=== PATIENT | male | born 1970 | race Caucasian/White ===

== ENCOUNTER → 2019-06-16 11:02 | Outpatient (BNVA) | payer OTHER, SELFPAY | PROVIDERS: Family Provider Family Medicine; PCP Family Medicine; Visit Provider Family Medicine | DX: E11.9 Type 2 diabetes mellitus without complications (principal); E78.2 Mixed hyperlipidemia; I10 Essential (primary) hypertension; G47.00 Insomnia, unspecified; M19.90 Unspecified osteoarthritis, unspecified site | CPT/HCPCS: 80053; 80061; 83036; 85025 ==

== ENCOUNTER → 2019-10-06 09:52 | Outpatient (BNVA) | payer OTHER, SELFPAY | PROVIDERS: Family Provider Family Medicine; PCP Family Medicine; Visit Provider Family Medicine | DX: E78.2 Mixed hyperlipidemia (principal); E11.9 Type 2 diabetes mellitus without complications; I10 Essential (primary) hypertension | CPT/HCPCS: 80053; 80061; 83036; 85025 ==

== ENCOUNTER → 2020-01-16 14:07 | Outpatient (BNVA) | payer OTHER, SELFPAY | PROVIDERS: Family Provider Family Medicine; PCP Family Medicine; Visit Provider Family Medicine | DX: E78.2 Mixed hyperlipidemia (principal); E11.9 Type 2 diabetes mellitus without complications | CPT/HCPCS: 80053; 80061; 83036; 85025 ==

== ENCOUNTER → 2020-04-29 11:27 | Outpatient (BNVA) | payer OTHER, SELFPAY | PROVIDERS: Family Provider Family Medicine; PCP Family Medicine; Visit Provider Family Medicine | DX: E78.2 Mixed hyperlipidemia (principal); E11.9 Type 2 diabetes mellitus without complications; I10 Essential (primary) hypertension | CPT/HCPCS: 80053; 80061; 83036; 85025 ==

== ENCOUNTER → 2020-09-06 09:49 | Outpatient (BNVA) | payer OTHER, SELFPAY | PROVIDERS: Family Provider Family Medicine; PCP Family Medicine; Visit Provider Family Medicine | DX: E11.9 Type 2 diabetes mellitus without complications (principal); I10 Essential (primary) hypertension; E78.2 Mixed hyperlipidemia; M62.830 Muscle spasm of back; M54.9 Dorsalgia, unspecified; G89.29 Other chronic pain | CPT/HCPCS: 80053; 80061; 83036; 84443; 85025 ==

== ENCOUNTER → 2021-02-27 10:04 | Outpatient (BNVA) | payer OTHER, SELFPAY | PROVIDERS: Family Provider Family Medicine; PCP Family Medicine; Visit Provider Family Medicine | DX: I10 Essential (primary) hypertension (principal); M54.9 Dorsalgia, unspecified; G89.29 Other chronic pain; E78.2 Mixed hyperlipidemia; M62.830 Muscle spasm of back; K13.70 Unspecified lesions of oral mucosa; E11.9 Type 2 diabetes mellitus without complications; Z23 Encounter for immunization | CPT/HCPCS: 80053; 80061; 83036; 84443; 85025 ==

== ENCOUNTER → 2021-03-13 10:22 | Outpatient (BNVA) | payer OTHER, SELFPAY | PROVIDERS: Family Provider Family Medicine; PCP Family Medicine; Visit Provider Otolaryngology | DX: Z01.812 Encounter for preprocedural laboratory examination (principal); K13.70 Unspecified lesions of oral mucosa; Z20.822 Contact with and (suspected) exposure to COVID-19 | CPT/HCPCS: 87635 ==

== ENCOUNTER 2021-03-19 07:44 | Day surgery (SDC) | payer OTHER, SELFPAY ==
[2021-03-18 13:08] VITALS: BMI 35.9
[2021-03-19] VITALS (7 sets, daily range): BP systolic 106–156; BP diastolic 59–87; PULSE 55–99; RESP 15–20; TEMP 36.1–36.7; O2SAT 91–97
[2021-03-19] MEDS: sodium chloride 0.9% 1,000 ML 30 ML IV (08:22)
[2021-03-19 08:25] LABS: Glucose Point of Care 148 mg/dL (70-110)
--- NOTE | 2021-03-19 08:25 | ANES.PREANE2 ---
Pre-Anesthetic Assessment Pre-Anesthetic Assessment: Height/Weight: Height 1.78 m Weight 113.398 kg Temp Pulse Resp BP Pulse Ox 98 F 55 L 16 156/87 95 03/19/21 08:09 03/19/21 08:09 03/19/21 08:09 03/19/21 08:09 03/19/21 08:09 Preop Diagnosis: Right buccal membrane ulceration and neoplasm Proposed Procedure: Operation Date: 03/19/21 09:20 Proposed Procedures p :BIOPSIES OF RIGHT ORAL MUCOSAL LESION WITH FROZEN SECTION 50231 d49.0(Not Applicable) - Ed Guallpa MD Was Beta Yasmani taken within 24 hours: N/A Was Clonidine taken within 24 hours: N/A Last intake: Intake Last Liquid Date 03/18/21 Last Liquid Time 20:00 Last Solid Date 03/18/21 Last Solid Time 20:00 Social: Social History: Tobacco and No alcohol Exam: Pre-Anes Outpt Exam: alert, oriented x 3, clear to auscultation bilaterally and regular rate & rhythm Airway: Submandibular: WNL Cervical ROM: WNL MP: 2 Dentition: Full Pulmonary: Pulmonary: COPD CV/HEM: CV/HEM: HTN Metabolic: Metabolic: DM, Hyperlipidemia and Morbid obesity Neuropsych: Neuropsych: Neuropathy Anesthetic Plan: ASA status: 3 Anesthesia: General Risk of > 500 ml blood loss (7ml/kg in children): No Meds/Allergies Current Medications: Current Medications Generic Name Dose Route Start Last Admin Trade Name Freq PRN Reason Stop Dose Admin Sodium Chloride 1,000 mls @ 30 ml s/hr 03/19/21 08:00 03/19/21 08:22 Sodium Chloride 0.9% IV 03/20/21 07:59 30 mls/hr .Q24H JOSH Administration PFSH Anesthesia PFSH: Medical History Aortic valve sclerosis Essential (primary) hypertension Hyperlipemia, mixed Type 2 diabetes mellitus without complications Family History Grandfather No problems noted. Father Cancer lung Lung disease Hypertension Mother Diabetes Social History Smoking and tobacco status: current every day smoker Alcohol intake: never Adopted: No Lives independently: Yes Household members: none Housing: House Marital status: Number of children: 2 Highest education level completed: 9th Grade service: No Current occupational status: employed Pets and animals: Yes History of recent travel: No Current gender identity: Male Data Anesthesia Cardiac Studies: No Data to Display
--- NOTE | 2021-03-19 09:54 | W.PM.OPSUD ---
Surgery/Procedure H&P Update DATE OF PROCEDURE: March 19, 2021 DATE H&P PERFORMED: 03/03/21 H&P UPDATE INFORMATION: I have reviewed H&P completed within last 30 days, I have examined patient prior to procedure and No changes to prior documentation PREOP DIAGNOSIS: Right buccal membrane ulceration and neoplasm PLANNED PROCEDURE: Operation Date: 03/19/21 09:20 Proposed Procedures p :BIOPSIES OF RIGHT ORAL MUCOSAL LESION WITH FROZEN SECTION 24105 d49.0(Not Applicable) - Ed Guallpa MD
[2021-03-19] MEDS: ceFAZolin 3,000 MG in sodium chloride 0.9% (100 ml) 100 ML 200 MG IV (09:59)
--- NOTE | 2021-03-19 10:35 | SUR.OPER ---
1012 6 carpiols of 1.7ml 2% lidocaine with epi given introrally by dr. zhang
--- NOTE | 2021-03-19 10:51 | P.OP_ITS ---
Operative Report Date of procedure: March 19, 2021 Pre-op Diagnosis: Right buccal membrane ulceration and neoplasm Post-op diagnosis: same Post-op Findings: Superficial ulceration with thickened tissue and leukoplakia with erythroplakia. Frozen section did not show any malignancy. Procedure Done: Incisional biopsy of right buccal membrane and retro molar trigone soft tissue. Specimens removed/disposition: 2 adjacent specimens from the right buccal membrane and retromolar trigone were forwarded to pathology for frozen section and subsequent testing. Surgeon: Ed Guallpa Anesthesia: General and Local Estimated blood loss (mL): 25 Complications: No complications encountered. Findings: There was an ulceration with somewhat irregular erythematous tissue adjacent to leukoplakic changes in the right posterior buccal membrane extending to a mass-effect in the right retromolar trigone area. Condition: stable Disposition: PACU Brief History: 50-year-old male patient with a heavy smoking history for 25 years of cigarettes and then 10 years of cigars. He has leukoplakia and erythroplakia changes in the right buccal membrane extending to an ulcerative area and what appears to be an adjacent soft tissue mass with irregular erythema on its surface at the retromolar trigone. He is being brought to the operating room at this time to undergo biopsy of these areas with frozen section. Procedure: Description of procedure: The patient was placed on the operating table in the supine position. Adequate general endotracheal tube anesthesia was obtained. He was given Ancef IV for prophylaxis. A timeout was accomplished identifying the patient date of plan procedure allergies fire risk and medications given. With all in agreement the procedure continued. The table was rotated 90 degrees. He was positioned for an oral procedure. A mouthguard and retractor was placed between the teeth upper and lower and spread open to reveal the buccal membrane. A towel clamp was placed to the median raphae of the tongue to be able to retract it to the left. 8.5 mL of 2% Xylocaine with 1- 100,000 epinephrine was then injected in the surrounding area and field block. After several minutes a 15 blade was used to incise through the surrounding buccal membrane and lesion site down to the subcutaneous tissue. This was taken to the retromolar trigone and then a second specimen was resected from the retromolar trigone. These were forwarded to the pathologist for frozen section. While that was pending bipolar cautery was used to control bleeding in this soft tissue area. Sponge was placed to hold pressure on the area. Pathology returned as no neoplasm identified with most likely leukoplakic changes with abnormal lymphocytes surrounding the area. Final diagnosis is deferred to permanent section and lymphoascitic special studies. This defect was then closed using 2-0 Vicryl interrupted sutures closing the defect completely. There was an area of approximately 2 cm? that was closed. No bleeding was encountered at this point. The mouth was irrigated with saline and suctioned clean. Again no active bleeding was seen. The throat was suctioned again. The sponges were removed from the mouth. The mouthguard and retractor were removed. Patient was then returned to the anesthesiologist for wake-up and extubation. He tolerated the procedure well had an estimated blood loss of 25 mL and arrived in recovery in stable condition.
[2021-03-19] MEDS: TRAMadol 50 mg Tablet PO (11:37)
[2021-03-19] MEDS: cetylpyridinium Lozenge 1 EACH MUCOUS MEM (11:58)
--- NOTE | 2021-03-19 15:47 | ANE.PACU2 ---
Inpatient post-anesthesia follow up: Airway intact: Yes Vital signs: Temperature 98.1 F Pulse Rate 67 Respiratory Rate 16 Blood Pressure 125/62 Pulse Oximetry 95 Oxygen Delivery Me thod Room Air Oxygen Flow Rate 6 Fraction of Inspir ed Oxygen Hydration adequate: Yes Nausea and vomiting: No Pain level: 2 Mental status: Baseline
[2021-03-26 06:47] LABS: Miscellaneous Test See Scanned Lab Rpt
== END 2021-03-19 12:25 | disposition home or self-care (01) ==
PROVIDERS: PCP Family Medicine; Visit Provider Otolaryngology
PROC: (CPT 40808; principal; 2021-03-19 09:20)
DX: C06.2 Malignant neoplasm of retromolar area (principal); K13.21 Leukoplakia of oral mucosa, including tongue; K13.29 Other disturbances of oral epithelium, including tongue; J44.9 Chronic obstructive pulmonary disease, unspecified; I10 Essential (primary) hypertension; E11.40 Type 2 diabetes mellitus with diabetic neuropathy, unspecified; E66.01 Morbid (severe) obesity due to excess calories; Z68.35 Body mass index [BMI] 35.0-35.9, adult; E78.2 Mixed hyperlipidemia; F17.290 Nicotine dependence, other tobacco product, uncomplicated
CPT/HCPCS: 40808; 36416; 82962; 88271; 88275; 88331; 96365; J0690; J1100; J2405; J2704; J3010; J3490; J7030

== ENCOUNTER 2021-04-07 14:50 | Outpatient (CLI) | payer OTHER, SELFPAY ==
--- NOTE | 2021-04-07 16:04 | N.ONRAD NP_ITS ---
Radiation Oncology Consultation Patient Name: Antonio Parra Date of : 1970 Date of Service: 04/07/2021 Attending Physician: Brian Kellogg M.D. Antonio Parra was seen in consultation this afternoon at the request of Ed Guallpa M.D for evaluation regarding adjuvant head and neck radiotherapy for the management of a recently diagnosed oral cavity carcinoma. The patient was evaluated in February at the Otolaryngology Department of the [facility] DEUS use for a right buccal lesion. Examination identified a 1.5 cm superficial ulceration with associated erythroplakia and leukoplakia. An excision was performed by Ed Guallpa M.D. on March 19, 2021. 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 The patient's postoperative convalescence was complicated by dehiscence of the buccal membrane sutures. He was evaluated for postoperative radiotherapy. I discussed with Mr. Parra the AJCC staging, specifically the patient's pathological stage I (T1Nx) of the oral cavity associated with his diagnosis. I also reviewed the National Comprehensive Cancer Network Guidelines for adjuvant radiotherapy in patients with newly resected tumors and adverse features (i.e. close margins, lymphovascular invasion/perineural, pN2/pN3, or advanced tumors; pT3-pT4). I will order a PET CT for staging. If imaging is negative, adjuvant radiotherapy would not be recommended on account of the absence of adverse tumor characteristics The medical treatment plan was discussed with Ed Guallpa M.D Signed by: Dr. Brian Kellogg 04/07/2021 4:03:08 PM
== END 2021-04-07 14:51 | disposition home or self-care (01) ==
LOC: ONCMED 14:54
PROVIDERS: PCP Family Medicine; Visit Provider Radiology Radiation Oncology
DX: C06.9 Malignant neoplasm of mouth, unspecified (principal); C77.0 Secondary and unspecified malignant neoplasm of lymph nodes of head, face and neck; Z79.899 Other long term (current) drug therapy
CPT/HCPCS: 99205

== ENCOUNTER 2021-05-19 08:08 | Outpatient (CLI) | payer OTHER, SELFPAY ==
--- NOTE | 2021-05-19 | CT_ITS ---
NOTE: Report was unsigned for reason: Ordering provider was edited. Original Signature date and time was: 05/19/2021 0907 WS: [id number] Exam: CT neck w con* [id number] Date/Time of Exam: 05/19/2021 8:30 AM Reason For Exam: MALIGNANT NEOPLASM CHEEK MUCOSA DLP: 1310.[address] scans at [facility] use at least one of these dose optimization techniques: automated exposure control; mA and/or kV adjustment per patient size (includes targeted exams where dose is matched to clinical indication); or iterative reconstruction. The head and neck are evaluated in the axial plane with sagittal and coronal reformatted images. Intravenous contrast was administered. There was no sign of neck mass or significant cervical lymphadenopathy. Several small scattered subcentimeter short axis lymph nodes are noted bilaterally which have benign appearance. The submandibular glands and parotid glands are symmetrical side to side. Normal thyroid tissue. Leftward nasal septal deviation. The airway is patent. No masses in the region of the tongue base. The bilateral common carotid arteries and the extracranial internal carotid arteries are patent without critical stenosis or occlusion. Bony structures are intact. Visualized upper lung zones are clear. Images of the skull base and posterior fossa were unremarkable. Mild bilateral sphenoid sinus changes. [facility] CT/CT neck w con* [id number] IMPRESSION: 1. No sign of neck mass or significant cervical lymphadenopathy. 2. Other minor findings as above.
[2021-05-19] MEDS: iohexol 300 mg/mL 100 mL Btl IV (11:41)
== END 2021-05-19 08:09 | disposition home or self-care (01) ==
PROVIDERS: PCP Family Medicine; Visit Provider Radiology Radiation Oncology
DX: C06.0 Malignant neoplasm of cheek mucosa (principal)
CPT/HCPCS: 70491; Q9967

== ENCOUNTER 2021-05-21 09:58 | Outpatient (CLI) | payer OTHER, SELFPAY ==
--- NOTE | 2021-05-21 | CT_ITS ---
WS: [id number] CT CHEST, ABDOMEN, AND PELVIS TECHNIQUE: Contrast-enhanced CT of the chest, abdomen, and pelvis with coronal and sagittal reformatt ed images. CLINICAL INFORMATION: MALIGNANT NEOPLASM CHEEK MUCOSA COMPARISON: CT abdomen pelvis 2005. CT neck May 19, 2021 DLP: 2565.[address] scans at [facility] use at least one of these dose optimization techniques: automated e xposure control; mA and/or kV adjustment per patient size (includes targeted exams where dose is matc hed to clinical indication); or iterative reconstruction. CT CHEST: Lungs are well aerated. No acute pulmonary infiltrates. No focal pneumonia or pleural fluid. No suspi cious pulmonary parenchymal abnormalities. Normal caliber thoracic aorta. Proximal main pulmonary arteries are normal. Normal thyroid gland. No mediastinal or hilar lymphadenopathy. No axillary lymphadenopathy. CT ABDOMEN AND PELVIS: Hepatomegaly with diffuse fatty infiltration of the liver. Normal portal vein and splenic vein. Amanda l gallbladder. Normal GE junction. Normal pancreas. Normal portal vein and splenic vein. Adrenal glan ds are normal. Normal renal parenchymal enhancement. No hydronephrosis. Left renal cyst measuring 2.8 x 1.8 cm. Sigmoid diverticulosis. No evidence of high-grade small or large bowel obstruction. No abdominal or p eriaortic lymphadenopathy. Incidental fat-containing inguinal hernias. Hypertrophic changes in the mi d and upper thoracic spine with mild chronic anterior wedging spondylitic changes. Associated disc de siccation. Hypertrophic and degenerative changes sacroiliac joints with marginal sclerosis likely due to prior sacroiliitis. CT/CT chest abd pel w con* IMPRESSION: 1. No evidence of metastatic disease in the chest abdomen or pelvis. 2. No suspicious pulmonary parenchymal abnormalities. 3. No adenopathy in the chest abdomen or pelvis. 4. Hepatomegaly with diffuse fatty infiltration of the liver. 5. Left renal cyst measuring 2.8 x 1.8 cm. 6. No other significant findings.
[2021-05-21] MEDS: iohexol 300 mg/mL 50 mL Btl PO (15:13)
[2021-05-21] MEDS: iohexol 350 mg/mL 100 mL Btl IV (15:13)
== END 2021-05-21 09:59 | disposition home or self-care (01) ==
PROVIDERS: PCP Family Medicine; Visit Provider Radiology Radiation Oncology
DX: C06.0 Malignant neoplasm of cheek mucosa (principal); Q61.01 Congenital single renal cyst; R16.0 Hepatomegaly, not elsewhere classified; K76.0 Fatty (change of) liver, not elsewhere classified
CPT/HCPCS: 71260; 74177; Q9967

== ENCOUNTER → 2021-09-16 08:16 | Outpatient (BNVA) | payer BC, MEDICAID, SELFPAY | PROVIDERS: PCP Family Medicine; Visit Provider Otolaryngology | DX: D49.0 Neoplasm of unspecified behavior of digestive system (principal); K13.21 Leukoplakia of oral mucosa, including tongue; K13.79 Other lesions of oral mucosa; F17.210 Nicotine dependence, cigarettes, uncomplicated | CPT/HCPCS: 99213; 99214 ==

== ENCOUNTER → 2021-09-23 10:27 | Outpatient (BNVA) | payer BC, MEDICAID, SELFPAY | PROVIDERS: PCP Family Medicine; Visit Provider Family Medicine | DX: M79.671 Pain in right foot (principal); M79.672 Pain in left foot; E78.2 Mixed hyperlipidemia; E11.9 Type 2 diabetes mellitus without complications; I10 Essential (primary) hypertension; M54.9 Dorsalgia, unspecified; G89.29 Other chronic pain; Z12.5 Encounter for screening for malignant neoplasm of prostate; R53.83 Other fatigue; M25.50 Pain in unspecified joint | CPT/HCPCS: 73650; 80053; 80061; 83036; 84403; 84443; 85025; G0103 ==

== ENCOUNTER 2021-10-02 07:20 | Day surgery (SDC) | payer BC, MEDICAID, SELFPAY ==
[2021-10-01 13:25] VITALS: BMI 38.7
[2021-10-02] VITALS (8 sets, daily range): BP systolic 96–144; BP diastolic 44–88; PULSE 61–74; RESP 14–23; TEMP 36.3–36.7; O2SAT 92–98
[2021-10-02 08:00] LABS: Glucose Point of Care 195 mg/dL (70-110)
[2021-10-02] MEDS: sodium chloride 0.9% 1,000 ML 30 ML IV (08:03)
--- NOTE | 2021-10-02 08:04 | ANES.PREANE2 ---
Pre-Anesthetic Assessment Height/Weight: Height 1.78 m Weight 122.47 kg Temp Pulse Resp BP Pulse Ox 98.0 F 61 18 144/88 96 10/02/21 07:32 10/02/21 07:32 10/02/21 07:32 10/02/21 07:32 10/02/21 07:32 Preop Diagnosis: Recurrent right retromolar trigone lesion Operation Date: 10/02/21 08:55 Proposed Procedures p oral biopsies x3 45406/d49.0/k13.21(Not Applicable) - Ed Guallpa MD Familial anesthetic complications: None Was Beta Yasmani taken within 24 hours: N/A Was Clonidine taken within 24 hours: N/A Last intake: Intake Last Liquid Date 10/01/21 Last Liquid Time 20:30 Last Solid Date 10/01/21 Last Solid Time 17:00 Social Tobacco and No alcohol Exam alert, oriented x 3, clear to auscultation bilaterally and regular rate & rhythm Airway Mallampati: Class IV Dentition: other (1 pulled) Comments: Comments: Somewhat limited mouth opening since previous surgery, appears adequate for intubation Pulmonary None reported CV/HEM Hypertension None reported Hepatic None reported GI None reported Metabolic Diabetes Mellitus, Hyperlipidemia and Morbid Obesity [facility] [place] None reported Neuropsych None reported Anesthetic Plan ASA status: 3 Anesthesia: General Risk of > 500 ml blood loss (7ml/kg in children): No Medications/Allergies Home Medications Medication Instructions Recorded Confirmed Last Taken Type glipizide 5 mg tablet See Rx Instructions .ROUTE 09/02/21 10/01/21 09/30/21 Rx .COMPLEX #60 tab amlodipine 10 mg tablet See Rx Instructions .ROUTE 09/23/21 10/01/21 10/01/21 Rx .COMPLEX #90 tab celecoxib 200 mg capsule (Celebrex) 200 mg PO BID #60 cap 09/23/21 10/01/21 09/30/21 Rx gabapentin 800 mg tablet 800 mg PO TID #270 tab 09/23/21 10/01/21 10/01/21 Rx hydrocodone 5 mg-acetaminophen 325 1 tab PO Q8H 30 Days #90 tab 09/23/21 10/01/21 10/02/21 05:45 Rx mg tablet liraglutide 0.6 mg/0.1 mL (18 mg/3 1.8 mg (0.3 mL) SUBCUT DAILY 90 09/23/21 10/01/21 10/01/21 08:00 Rx mL) subcutaneous pen injector Days #27 ml (Victoza 3-Michael) metformin 1,000 mg tablet 1,000 mg PO BID #180 tab 09/23/21 10/01/21 10/01/21 Rx pen needle, diabetic 32 gauge x #50 each 09/23/21 09/23/21 Unknown Rx (UltiCare Pen Needle) pravastatin 40 mg tablet See Rx Instructions .ROUTE 09/23/21 10/01/21 09/30/21 Rx .COMPLEX #90 tab tadalafil 5 mg tablet (Cialis) 5 mg PO DAILY #30 tab 09/23/21 10/01/21 10/01/21 Rx tizanidine 4 mg tablet 4 mg PO TID PRN #30 tab 09/23/21 10/01/21 09/28/21 Rx varenicline 1 mg tablet 1 mg PO BID 84 Days #168 tab 09/23/21 10/01/21 10/01/21 Rx dapagliflozin 10 mg tablet 10 mg PO DAILY #30 tab 10/01/21 Unknown Rx (Farxiga) irbesartan 300 mg tablet (Avapro) 300 mg PO DAILY 10/01/21 10/01/21 09/30/21 History olmesartan 40 mg tablet 40 mg PO DAILY 10/01/21 10/01/21 10/01/21 History Allergies Allergy/AdvReac Type Severity Reaction Status Date / Time lisinopril Allergy Unknown Verified 09/23/21 09:02 Current Medications Generic Name Dose Route Start Last Admin Trade Name Freq PRN Reason Stop Dose Admin Sodium Chloride 1,000 mls @ 30 mls/hr 10/02/21 07:30 10/02/21 08:03 Sodium Chloride 0.9% IV 10/03/21 07:29 30 mls/hr .Q24H JOSH Administration PFSH Anesthesia Medical History Aortic valve sclerosis Essential (primary) hypertension Hyperlipemia, mixed Type 2 diabetes mellitus without complications Surgical History Hx of carpal tunnel repair Family History Grandfather No problems noted. Father Cancer lung Lung disease Hypertension Mother Diabetes Social History Smoking and tobacco status: current every day smoker (Vaping) Alcohol intake: never Adopted: No Lives independently: Yes Household members: none Housing: House Marital status: Number of children: 2 Highest education level completed: 9th Grade service: No Current occupational status: employed Pets and animals: Yes History of recent travel: No Current gender identity: Male Data Anesthesia Cardiac Studies: No Data to Display
--- NOTE | 2021-10-02 08:08 | W.PM.OPSUD ---
Surgery/Procedure H&P Update DATE OF PROCEDURE: October 02, 2021 DATE H&P PERFORMED: 09/16/21 H&P UPDATE INFORMATION: I have reviewed H&P completed within last 30 days, I have examined patient prior to procedure and No changes to prior documentation PREOP DIAGNOSIS: Recurrent right retromolar trigone lesion PRIMARY INDICATION FOR PROCEDURE: Recurrent right retromolar trigone lesion previously diagnosed as malignancy. PLANNED PROCEDURE: Operation Date: 10/02/21 08:55 Proposed Procedures p oral biopsies x3 66666/d49.0/k13.21(Not Applicable) - Ed Guallpa MD
[2021-10-02] MEDS: ceFAZolin 3,000 MG in sodium chloride 0.9% (100 ml) 100 ML 200 MG IV (08:16)
[2021-10-02] MEDS: EPINEPHrine 1 mg/mL INJ 2 MG XX (08:50)
--- NOTE | 2021-10-02 09:19 | P.OP_ITS ---
Operative Report Date of procedure: October 02, 2021 Pre-op diagnosis: Preop Diagnosis Recurrent right retromolar trigone lesion Post-op diagnosis: Recurrent invasive squamous cell carcinoma right retromolar trigone and buccal membrane and alveolar ridge posteriorly and soft palate mucous membrane. Post-op findings: Malignancy involves right posterior buccal membrane extending to the alveolar ridge and retromolar trigone and then extending up to the posterior maxillary molar on the right side and extending to the soft palate. Procedure done: Multiple biopsies of malignancy of right retromolar trigone and adjacent tissue Implants: No implants Specimens removed/disposition: Right buccal membrane biopsy. Right retromolar trigone biopsy. Right posterior mandibular alveolar ridge. Pathology: Frozen section buckle membrane returned as invasive squamous cell carcinoma. Frozen section did not reveal any malignancy in the other locations. However grossly it appears as if there is extension. Surgeon: Ed Guallpa MD Anesthesia: General Estimated blood loss: 20 mL Complications: No complications encountered Findings: Exophytic mass extending from right buccal membrane posteriorly over the retromolar trigone and onto the posterior mandibular alveolar ridge as well as extension to the maxillary alveolar ridge posterior to the posterior molar and then extending onto the soft palate. Brief History: 51-year-old male patient who was seen back in February 2021. He had a lesion in the right retromolar trigone area which after going to the operating room and biopsying several areas showed to have invasive squamous cell carcinoma with deep margins clear. The patient was denied a PET scan by his insurance and radiation therapy did not feel it was appropriate to treat without definitive positive PET scan. Therefore nothing in regards to treatment was rendered. The patient was intended to follow-up with me 2 months later but he never did. In August 2021 the patient came back to see me because he was having pain with op ening his jaw. The patient was noted to have a significant amount of exophytic multilobulated growth of the right posterior buccal membrane with extensions to the alveolar ridge of the mandible and maxilla as well as the retromolar trigone and soft palatal region superiorly. Therefore the patient is being brought to the operating room to undergo excision for biopsy purposes of several of these a reas. The procedure its risks and complications were well understood by the patient. Informed consent was granted and witnessed. Procedure: Description of procedure: The patient was placed on the operating table in the supine position. Adequate general endotracheal tube anesthesia was obtained. A timeout was accomplished identifying the patient date of plan procedure allergies fire risk and medications given. With all in agreement the procedure continued. The patient was given Ancef IV for prophylaxis. A Ralph Bob mouthgag was inserted over the endotracheal tube and tongue ensuring that the upper incisors were in the guard. This was placed after placing a head drape and taping his eyes closed. Then the mouthgag was opened and suspended from a rolled blanket placed on his chest. The area was evaluated and palpated and the area of the first biopsy was from the exophytic area of the right buccal membrane. This was done with a 15 blade and DeBakey forceps. After the biopsy was taken it was sent to the pathologist for frozen section diagnosis. The patient also underwent biopsies of the right retromolar trigone soft tissue and posterior aspect of the mandibular alveolar ridge posteriorly. Cottonoids with 1-1000 epinephrine were applied to the biopsy areas. The first biopsy returned as invasive squamous cell carcinoma. With that information the area was irrigated and suctioned clean. Cottonoids and sponges that were used during the procedure were removed from the oral cavity. The area was suctioned clean. There was no active bleeding. The patient had his head return to the upright position. Head drape and tape were removed. The throat was suctioned again with no sign of any bleeding. Patient was then returned to anesthesia for wake- up and extubation. The patient tolerated the procedure well had an estimated blood loss of 20 mL and arrived in recovery in stable condition. Frozen section on specimens B and C were negative for malignancy.
--- NOTE | 2021-10-02 09:42 | P.PTHFZ_ITS ---
Frozen Section Notes Specimen(s): Rt buccal membrane, Rt retromolar alveolar trident, Rt retromolar cornell.ridge Gross: A. Oral cavity, right buccal membrane , greenberg-pink mucosal fragments measuring 0.6 cm in greatest dimension, submitted entirely in cassette FSA1. B. Oral cavity, right retromolar alveolar Trident consists of 3 fragments of greenberg-pink mucosa measuring 0.3 cm each, submitted in cassette FSB1. C. Oral cavity, right retromolar alveolar ridge , greenberg-pink mucosal fragments measuring 0.3 cm each, submitted entirely in cassette FSC1. Preliminary Impression: A. Oral cavity, right buccal membrane , biopsy: ? Squamous cell carcinoma. B. Oral cavity, right retromolar alveolar Trident , biopsy: ? Negative for malignancy. ? Chronic inflammation. C. Oral cavity, right retromolar alveolar ridge , biopsy: ? Negative for malignancy. - Specimen Information Pathologist: Arlin Crowe Date: 10/02/21 Specimen reported at what time: 09:15 (Specimens B and C were reported at 9:19 a nd 9:24 am.) - Clinician Specimen collection time: 09:00 Clinician reported to: Ed Guallpa (Surgeon stepped out of the operating room for results on specimen B and C. Nurse burkett was reached and then Dr Guallpa was called while the results were communicated.)
== END 2021-10-02 10:51 | disposition home or self-care (01) ==
PROVIDERS: PCP Family Medicine; Visit Provider Otolaryngology
PROC: (CPT 42800; principal; 2021-10-02 08:45)
DX: C00-D49 Neoplasms (principal); E11.9 Type 2 diabetes mellitus without complications; E78.5 Hyperlipidemia, unspecified; E66.01 Morbid (severe) obesity due to excess calories; Z68.38 Body mass index [BMI] 38.0-38.9, adult; Z79.84 Long term (current) use of oral hypoglycemic drugs; F17.290 Nicotine dependence, other tobacco product, uncomplicated
CPT/HCPCS: 40808; 36415; 36416; 82962; 88305; 88331; 88342; J0171; J0330; J0690; J1100; J2370; J2405; J2704; J2710; J3010; J3490; J7030

== ENCOUNTER → 2021-10-13 09:02 | Outpatient (BNVA) | payer BC, MEDICAID, SELFPAY | PROVIDERS: PCP Family Medicine; Visit Provider Otolaryngology | DX: C06.9 Malignant neoplasm of mouth, unspecified (principal); F17.290 Nicotine dependence, other tobacco product, uncomplicated | CPT/HCPCS: 99213 ==

== ENCOUNTER 2021-11-21 09:21 | Oncology outpatient (recurring) (ONCR) | payer BC, MEDICAID, SELFPAY ==
--- NOTE | 2021-11-03 15:12 | ONCRAD EPV_ITS ---
Radiation Oncology Follow-Up Note Patient Name: Antonio Parra Date of : 1970 Date of Service: 11/03/2021 Attending Physician: Brian Kellogg M.D. Antonio Parra was seen in consultation this afternoon at the request of Ed Guallpa M.D for evaluation regarding adjuvant head and neck radiotherapy for the management of a recently diagnosed oral cavity carcinoma. The patient was evaluated in February at the Otolaryngology Department of the [facility] for a right buccal lesion. Examination identified a 1.5 cm superficial ulceration with associated erythroplakia and leukoplakia. An excision was performed by Ed Guallpa M.D. on March 19, 2021. 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 The patient's postoperative convalescence was complicated by dehiscence of the buccal membrane sutures. He was evaluated for postoperative radiotherapy but in accordance to The National Cancer Network Guidelines adjuvant treatment was not recommended. He was recently evaluated at the Otolaryngology Clinic regarding a lesion in his mouth. Examination revealed a 3 cm by 2 cm exophytic mass of the right buccal mucosa associated with leukoplakia. An exam under anesthesia was completed by Ed Guallpa M.D. on October 02, 2021. Intra-operative findings included a mass that involved the right, posterior buccal mucosa with extension to the alveolar ridge, retromolar trigone, maxillary molar and soft palate. A biopsy of the right buccal lesion diagnosed an invasive, keratinizing squamous cell carcinoma. Additional biopsies of the retromolar trigone and alveolar ridge were negative for malignancy (the pathology report was personally reviewed in [facility]). He was seen in consultation for head and neck radiotherapy. I discussed with Mr. Parra the National Comprehensive Cancer Network Guidelines for loco-regional recurrence of the oral cavity without prior radiotherapy recommending concurrent systemic therapy and radiation treatment. I will order a PET scan for staging prior to initiating treatment. I would endorse a 7 week course of radiotherapy. A computed tomographic radiotherapy planning scan with contrast in the treatment position will be acquired to identify the gross tumor volume and clinical target volumes (cervical lymph node levels). The potential toxicities of head and neck radiotherapy were reviewed. The patient has verbalized understanding would like to proceed as recommended. The patient has verbalized understanding and would like to proceed as advocated. The medical treatment plan was discussed with Macarena Blackwood M.D. Signed by: Dr. Brian Kellogg 11/03/2021 3:11:26 PM
[2021-11-03 15:50] LABS: Basophils % 0.6 %; Eosinophils # 0.2 10^3/uL (0.0-0.8); Eosinophils % 4.3 %; Hemoglobin 15.9 g/dL (11.7-16.6); Lymphocytes # 2.2 10^3/uL (0.8-4.8); Lymphocytes % 46.6 %; Mean Corpuscular HGB Conc 31.8 g/dL (30.0-36.0); Mean Corpuscular Hemoglobin 29.6 pg (28.0-34.0); Mean Corpuscular Volume 93.1 fl (80-94); Mean Platelet Volume 10.5 fL (7.4-10.4); Monocytes # 0.4 10^3/uL (0.2-0.9); Monocytes % 8.8 %; Neutrophils # 1.83 10^3/uL (1.8-7.7); Neutrophils % 39.3 %; Nucleated Red Blood Cells % 0 %; Platelet Count 189 10^3/cmm (130-400); Red Blood Count 5.37 10^6/uL (4.1-5.3); White Blood Count 4.7 10^3/uL (4.0-10.0)
[2021-11-03 16:18] LABS: Alanine Aminotransferase 29 U/L (0-41); Albumin Level 4.6 g/dL (3.5-5.2); Alkaline Phosphatase 59 IU/L (40-130); Anion Gap 14.2 (5-19); Aspartate Amino Transferase 25 U/L (0-40); Blood Urea Nitrogen 12 mg/dL (6-20); Calcium 9.7 mg/dL (8.5-10.5); Carbon Dioxide 27 mmol/L (22-29); Chloride 100 mmol/L (98-107); Globulin 3.1 g/dL (1.3-4.6); Glomerular Filtration Rate 78.2 mL/min (90-130); Glucose 116 mg/dL (65-115); Osmolality Calculated 285 mOsm/kg (285-295); Potassium 4.2 mmol/L (3.5-5.1); Sodium 137 mmol/L (136-145); Total Bilirubin 0.2 mg/dL (0.15-1.2); Total Protein 7.7 g/dL (6.6-8.7)
--- NOTE | 2021-11-21 10:01 | ONCRAD EPV_ITS ---
Radiation Oncology Follow-Up Note Patient Name: Antonio Parra Date of : 1970 Date of Service: 11/21/2021 Attending Physician: Brian Kellogg M.D. Antonio Parra returned this morning to discuss the recent PET scan results. The patient was evaluated in February at the Otolaryngology Department of the [facility] for a right buccal lesion. Examination identified a 1.5 cm superficial ulceration with associated erythroplakia and leukoplakia. An excision was performed by Ed Guallpa M.D. on March 19, 2021. 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 The patient's postoperative convalescence was complicated by dehiscence of the buccal membrane sutures. He was evaluated for postoperative radiotherapy but in accordance to The National Cancer Network Guidelines adjuvant treatment was not recommended. He was evaluated at the Otolaryngology Clinic regarding a lesion in his mouth. Examination revealed a 3 cm by 2 cm exophytic mass of the right buccal mucosa associated with leukoplakia. An exam under anesthesia was completed by Ed Guallpa M.D. on October 02, 2021. Intra-operative findings included a mass that involved the right, posterior buccal mucosa with extension to the alveolar ridge, retromolar trigone, maxillary molar and soft palate. A biopsy of the right buccal lesion diagnosed an invasive, keratinizing squamous cell carcinoma. Additional biopsies of the retromolar trigone and alveolar ridge were negative for malignancy. A PET scan ordered on November 14, 2021 described a focus of hypermetabolic activity in the right retromolar trigone (SUV 6.3), right neck level II lymph node measuring 1.4 cm (SUV 3), right level I lymph node measuring 1.3 cm (SUV 2.6), and a sub-centimeter left level I lymph node (SUV 2.2). I will request an ultrasound-guided FNA of the largest, right lymph node. Signed by: Dr. Brian Kellogg 11/21/2021 9:59:53 AM
== END 2021-11-27 23:59 | disposition home or self-care (01) ==
PROVIDERS: PCP Family Medicine; Visit Provider Radiology Radiation Oncology
DX: C06.0 Malignant neoplasm of cheek mucosa (principal); R59.0 Localized enlarged lymph nodes
CPT/HCPCS: 36415; 80053; 85025; 99214

== ENCOUNTER → 2021-12-02 08:26 | Outpatient (BNVA) | payer BC, MEDICAID, SELFPAY | PROVIDERS: PCP Family Medicine; Visit Provider Radiology Radiation Oncology | DX: C06.9 Malignant neoplasm of mouth, unspecified (principal) | CPT/HCPCS: 85610 ==

== ENCOUNTER → 2021-12-03 10:56 | Day surgery (SDC) | payer BC, MEDICAID, SELFPAY ==
[2021-11-28 12:00] VITALS: BMI 36.2
[2021-12-03 11:15] VITALS: BP 132/70; PULSE 60; RESP 18; TEMP 36.3; O2SAT 94
--- NOTE | 2021-12-03 11:50 | US_ITS ---
WS: [id number] ULTRASOUND SOFT TISSUES RIGHT cervical chain lymph nodes. HISTORY: FDG activity in right neck per PET COMPARISON: PET CT 11/14/2021. TECHNIQUE: 2-D and color Doppler imaging is submitted. Patient presents for possible fine-needle aspiration of a RIGHT cervical chain lymph node. Prior stud ies are reviewed. There are benign normal cervical chain lymph nodes along the RIGHT neck. These correspond to the lym ph nodes noted on the recent PET/CT which were positive but very small. This may have been reactive l ymph nodes. There is no lymph node identified that is suspicious for neoplastic involvement. No biops y will be performed. US/US soft tissue head neck 27571 IMPRESSION: No fine-needle aspiration of the cervical lymph nodes performed today. None of these lymph nodes are enlarged or have an abnormal appearance. These may be keyona ctive. If there is early metastatic disease that site is not evident at this ti me. It would not be beneficial to randomly biopsy a normal-appearing lymph node . I have explained this to the patient.
== END ==
PROVIDERS: PCP Family Medicine; Visit Provider Radiology Diagnostic Radiology
DX: R93.89 Abnormal findings on diagnostic imaging of other specified body structures (principal)
CPT/HCPCS: 76536

== ENCOUNTER 2021-12-10 08:03 | Oncology outpatient (recurring) (ONCR) | payer BC, MEDICAID, SELFPAY | END 2021-12-10 23:59 | disposition home or self-care (01) | PROVIDERS: PCP Family Medicine; Visit Provider Radiology Radiation Oncology | DX: C06.2 Malignant neoplasm of retromolar area (principal); F17.210 Nicotine dependence, cigarettes, uncomplicated; Z79.899 Other long term (current) drug therapy | CPT/HCPCS: 99205 ==

== ENCOUNTER → 2021-12-16 14:05 | Outpatient (BNVA) | payer BC, MEDICAID, SELFPAY | PROVIDERS: PCP Family Medicine; Visit Provider Otolaryngology | DX: C06.0 Malignant neoplasm of cheek mucosa (principal); R59.0 Localized enlarged lymph nodes; F17.290 Nicotine dependence, other tobacco product, uncomplicated | CPT/HCPCS: 99213 ==

== ENCOUNTER → 2021-12-22 09:00 | Outpatient (BNVA) | payer BC, MEDICAID, SELFPAY | PROVIDERS: PCP Family Medicine; Visit Provider Nurse Practitioner Family | DX: Z51.11 Encounter for antineoplastic chemotherapy (principal); C06.89 Malignant neoplasm of overlapping sites of other parts of mouth; F17.210 Nicotine dependence, cigarettes, uncomplicated; Z79.899 Other long term (current) drug therapy | CPT/HCPCS: 77014; 77386; 99215 ==

== ENCOUNTER 2021-12-26 09:39 | Oncology outpatient (recurring) (ONCR) | payer BC, MEDICAID, SELFPAY ==
--- NOTE | 2021-12-16 | CT_ITS ---
Radiation Therapy Planning CT images; total exam DLP:871.68 mGy-cm MTDD
--- NOTE | 2021-12-16 12:28 | ONCRAD EPV_ITS ---
Radiation Oncology Established Patient Visit Patient: Aida Alvarez [id number] : 1970 Age: 51> Sex: Male> Dictated by: Dr. Oswaldo Travis Date of Service: 12/16/2021 Referring Physician(s) : Ed Guallpa M.D. Diagnosis: C06.0 - Malignant neoplasm of cheek mucosa, Diagnosed 03/19/2021 (Active) Radiotherapy to Date: None Current History: Mr. Parra returns for simulation. He has recurrent carcinoma of the buccal mucosa. He complains of trismus ever since undergoing surgery last February. He cannot open his mouth to comfortably eat a hamburger or biscuit. The problem has slowly worsened. The trismus is associated with pain, particularly in the area of the recurrent cancer. He also feels that the cancer is creeping forward along the gingivobuccal sulcus superiorly. He has no problems with chewing, swallowing, or breathing. He had a right upper wisdom tooth extracted. He was reviewed he was approved to keep the remainder of his teeth during radiation. Current Medications: AmLODIPine Besylate, gabapentin, glipiZIDE, hYDROcodone-Acetaminophen, ibuprofen, metFORMIN HCl, olmesartan Medoxomil, pravastatin Sodium, tiZANidine HCl, traMADol HCl, victoza. Allergies: Lisinopril. Current Complaints / Review of Systems: . Vital Signs: Performed on 12/16/2021 10:08 AM BMI - 36.291 kg/m2 (high), Height - 71 in, Weight - 260.2 lbs, Temperature - 97.8 f, Pulse - 62 /min, Respiration - 16 /min, O2 Sat - 98 %, Pain - 5, Fatigue - 2 and BP - 138/ 77 mm(hg). Physical Exam: General: Alert and oriented x 3. No acute distress. HEENT: Normocephalic, atraumatic. He can only open his mouth to about 50% of normal. His teeth appear to be in fair repair. No lesions seen in the left side of the oral cavity. No lesions of the floor of mouth or the tongue. On the right he has an ulcerated lesion of the buccal mucosa posterior to the last right upper molar extending across the retromolar trigone to the anterior tonsillar pillar, possibly into the tonsillar fossa. Superior to inferior, the ulceration extends from the upper gingivobuccal sulcus to the lower gingival buccal sulcus. On inspection and palpation I could not detect any involvement of the base of tongue. However the lateral mucosa of the soft palate appears irregular and may represent extension of tumor. Also along the upper gingivobuccal sulcus where the patient has felt that the tumor is extending, there is irregular mucosa that extends anteriorly to the first molar. NECK: Supple without supraclavicular or jugular lymphadenopathy, NEUROLOGIC: Cranial nerves II ???XII are grossly intact. Normal sensation, strength 5/5 in all extremities, normal gait, no ataxia. Performance Status: ECOG 1 Lab: None pending. Pathology: Primary, c06.0 - malignant neoplasm of cheek mucosa, Diagnosed 03/19/2021 (active). Recurrent. Imaging: See HPI PET reviewed. It will be fused with the simulation CT performed today. Impression: Recurrent carcinoma of the buccal mucosa. Mr. Parra is a candidate for chemo RT given with curative intent. He already has moderate trismus and will be referred to speech pathology. I discussed some exercises that he can do to help also. His teeth are only in fair repair and I told him he will need very tedious dental hygiene and close dental follow-up following treatment. His disease is well lateralized based on physical exam and imaging. Therefore I feel that the left neck can be spared radiation. That will help some with both his trismus and xerostomia. I discussed acute side effects that typically occur during treatment. He wishes to proceed and simulation will be performed today. Signed by: 12/16/2021 12:26:32 PM <<Signature on File>> Time spent with patient: CPT Code: CPT Code:
[2021-12-22 08:55] LABS: Basophils % 0.3 %; Eosinophils # 0.3 10^3/uL (0.0-0.8); Eosinophils % 3.3 %; Hematocrit 55.6 % (42.0-52.0); Hemoglobin 17.6 g/dL (11.7-16.6); Lymphocytes # 1.8 10^3/uL (0.8-4.8); Lymphocytes % 20.1 %; Mean Corpuscular HGB Conc 31.7 g/dL (30.0-36.0); Mean Corpuscular Hemoglobin 29.5 pg (28.0-34.0); Mean Corpuscular Volume 93.3 fl (80-94); Mean Platelet Volume 11.5 fL (7.4-10.4); Monocytes # 0.7 10^3/uL (0.2-0.9); Monocytes % 7.7 %; Neutrophils # 6.06 10^3/uL (1.8-7.7); Neutrophils % 68.4 %; Nucleated Red Blood Cells % 0 %; Platelet Count 176 10^3/cmm (130-400); Red Blood Count 5.96 10^6/uL (4.1-5.3); Red Cell Distribution Width 13.2 % (12.1-15.1); White Blood Count 8.9 10^3/uL (4.0-10.0)
[2021-12-22 09:00] VITALS: BMI 36.2
[2021-12-22 09:13] LABS: Alanine Aminotransferase 19 U/L (0-41); Albumin Level 4.5 g/dL (3.5-5.2); Alkaline Phosphatase 58 IU/L (40-130); Aspartate Amino Transferase 21 U/L (0-40); Blood Urea Nitrogen 16 mg/dL (6-20); Calcium 9.4 mg/dL (8.5-10.5); Carbon Dioxide 25 mmol/L (22-29); Chloride 101 mmol/L (98-107); Globulin 2.8 g/dL (1.3-4.6); Glucose 241 mg/dL (65-115); Osmolality Calculated 295 mOsm/kg (285-295); Sodium 138 mmol/L (136-145); Total Bilirubin 0.2 mg/dL (0.15-1.2); Total Protein 7.3 g/dL (6.6-8.7)
[2021-12-22 09:16] LABS: Anion Gap 16.9 (5-19); Potassium 4.9 mmol/L (3.5-5.1)
[2021-12-22] MEDS: sodium chloride 0.9% 250 ML 100 ML IV (11:54)
[2021-12-22] MEDS: OLANZapine 5 mg TABLET PO (11:54)
[2021-12-22] MEDS: famotidine 20 mg/2 mL INJ IVP (11:55)
[2021-12-22] MEDS: diphenhydrAMINE 50 mg/mL SDV 1mL 25 MG IVP (11:58)
[2021-12-22] MEDS: fosaprepitant 150 MG in sodium chloride 0.9% 150 ML 300 MG IV (12:00)
[2021-12-22] MEDS: potassium chloride 20 MEQ in sodium chloride 0.9% 500 ML 500 MEQ IV (14:15)
[2021-12-22] MEDS: FUROsemide 10 mg/mL SDV 2mL 20 MG IVP (14:15)
[2021-12-22 15:18] VITALS: BP 157/75; PULSE 70; RESP 16; TEMP 36.4; O2SAT 92
[2021-12-23] MEDS: dexamethasone 10 mg/mL INJ IV (11:12)
[2021-12-23] MEDS: sodium chloride 0.9% 1,000 ML 500 ML IV (11:13)
[2021-12-23] MEDS: OLANZapine 5 mg ODT PO (11:37)
--- NOTE | 2021-12-23 11:43 | ONCRAD TMN_ITS ---
Radiation Oncology Weekly Treatment Management Patient: Aida Alvarez MR#: [id number] : 1970 Attending Physician: Dr. Oswaldo Travis Date of Service: 12/23/2021 Referring Physician(s) : Ed Guallpa M.D. Diagnosis: C06.0 - Malignant neoplasm of cheek mucosa, Diagnosed 03/19/2021 (Active) Radiotherapy to date: Course: [facility], Treatment Site: [facility], Ref. ID: [id number], Energy: 6X, Dose/Fx (cGy): 200, #Fx: 2 / 35, Dose Correction (cGy): 0, Total Dose (cGy): 400, Start Date: 12/22/2021, Elapsed Days: 1 Reason for visit: The patient is being seen today as part of their regularly scheduled weekly on treatment visits to assess for acute toxicities from radiotherapy. Review of Systems: No problems from radiation. He started chemotherapy yesterday and had a few episodes of nausea and vomiting. He states he feels better today. He has no new problems with regard to the oral cavity or neck. Vital Signs: Performed on 12/23/2021 10:43 AM BMI - 35.928 kg/m2 (high), Height - 71 in, Weight - 257.6 lbs, Temperature - 98.2 f, Pulse - 73 /min, Respiration - 18 /min, O2 Sat - 97 %, Pain - 0, Fatigue - 7 and BP - 139/ 79 mm(hg). Physical Exam: Alert, oriented, no acute distress. Ambulatory without assistance. Breathing quite and unlabored. Imaging: Radiation therapy imaging related to accurate target localization (i.e. KV, MV and CBCT) was reviewed. Appropriate changes, if any, were made to ensure treatment accuracy. Plan: Continue treatment as planned. I discussed the need for excellent dental hygiene and frequent follow-ups according to the recommendation of his dentist. Signed by: Dr. Oswaldo Travis 12/23/2021 11:42:37 AM
[2021-12-23 13:15] VITALS: BP 131/68; PULSE 68; RESP 16; TEMP 36.9; O2SAT 97
== END 2021-12-28 23:59 | disposition home or self-care (01) ==
PROVIDERS: Absent Provider Internal Medicine Medical Oncology; PCP Family Medicine; Visit Provider Specialist
DX: Z51.0 Encounter for antineoplastic radiation therapy (principal); C06.9 Malignant neoplasm of mouth, unspecified
CPT/HCPCS: 77300; 77301; 77334; 77338; 77386; 77470; 80053; 85025; 96365; 96366; 96367; 96375; 96413; 99213; J1100; J1200; J1453; J1940; J3475; J3480; J3490; J7030; J7040; J7050; J9060

== ENCOUNTER 2022-01-26 11:00 | Oncology outpatient (recurring) (ONCR) | payer BC, MEDICAID, SELFPAY ==
[2021-12-29 08:38] LABS: Basophils % 0.3 %; Eosinophils # 0.1 10^3/uL (0.0-0.8); Eosinophils % 1.1 %; Hematocrit 52.5 % (42.0-52.0); Hemoglobin 17.2 g/dL (11.7-16.6); Lymphocytes # 1.3 10^3/uL (0.8-4.8); Lymphocytes % 21.3 %; Mean Corpuscular HGB Conc 32.8 g/dL (30.0-36.0); Mean Corpuscular Hemoglobin 29.6 pg (28.0-34.0); Mean Corpuscular Volume 90.4 fl (80-94); Mean Platelet Volume 10.9 fL (7.4-10.4); Monocytes # 0.5 10^3/uL (0.2-0.9); Neutrophils # 4.33 10^3/uL (1.8-7.7); Nucleated Red Blood Cells % 0 %; Platelet Count 161 10^3/cmm (130-400); Red Blood Count 5.81 10^6/uL (4.1-5.3); White Blood Count 6.3 10^3/uL (4.0-10.0)
[2021-12-29 09:06] LABS: Alanine Aminotransferase 24 U/L (0-41); Albumin Level 4.2 g/dL (3.5-5.2); Alkaline Phosphatase 63 IU/L (40-130); Aspartate Amino Transferase 15 U/L (0-40); Blood Urea Nitrogen 29 mg/dL (6-20); Carbon Dioxide 28 mmol/L (22-29); Chloride 98 mmol/L (98-107); Globulin 2.9 g/dL (1.3-4.6); Glomerular Filtration Rate 63.3 mL/min (90-130); Glucose 280 mg/dL (65-115); Osmolality Calculated 300 mOsm/kg (285-295); Sodium 137 mmol/L (136-145); Total Bilirubin 0.2 mg/dL (0.15-1.2); Total Protein 7.1 g/dL (6.6-8.7)
[2021-12-29 09:09] LABS: Anion Gap 15.8 (5-19); Potassium 4.8 mmol/L (3.5-5.1)
--- NOTE | 2021-12-29 09:40 | ONCRAD TMN_ITS ---
Radiation Oncology Treatment Management Note Patient Name: Antonio Parra Date of : 1970 Date of Service: 12/29/2021 Attending Physician: Brian Kellogg M.D. Antonio Parra is a 51 year old white male diagnosed with a recurrent buccal cancer. The patient was evaluated in February 2021 at the Otolaryngology Department of the [facility] for a right buccal lesion. Examination identified a 1.5 cm superficial ulceration with associated erythroplakia and leukoplakia. An excision was performed by Ed Guallpa M.D. on March 19, 2021. 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 The patient's postoperative convalescence was complicated by dehiscence of the buccal membrane sutures. He was evaluated for postoperative radiotherapy but in accordance to The National Cancer Network Guidelines adjuvant treatment was not recommended. He was evaluated at the Otolaryngology Clinic in August regarding a lesion in his mouth. Examination revealed a 3 cm by 2 cm exophytic mass of the right buccal mucosa associated with leukoplakia. An exam under anesthesia was completed by Ed Guallpa M.D. on October 02, 2021. Intra-operative findings included a mass that involved the right, posterior buccal mucosa with extension to the alveolar ridge, retromolar trigone, maxillary molar and soft palate. A biopsy of the right buccal lesion diagnosed an invasive, keratinizing squamous cell carcinoma. Additional biopsies of the retromolar trigone and alveolar ridge were negative for malignancy. A PET scan ordered on November 14, 2021 described a focus of hypermetabolic activity in the right retromolar trigone (SUV 6.3), right neck level II lymph node measuring 1.4 cm (SUV 3), right level I lymph node measuring 1.3 cm (SUV 2.6), and a sub-centimeter left level I lymph node (SUV 2.2). An ultrasonography of the neck revealed benign cervical lymphadenopathy. The patient has received 12 Gy of a prescribed 70 Babb with an intensity modulated radiotherapy plan utilizing a step and shoot treatment technique. He has been prescribed cisplatin (100 mg/m2) every 3 weeks during radiotherapy. Upon review of systems, he denied any complaints related to radiotherapy. On physical examination, the patient weighed 256 lbs. His temperature was 97.8 ???F and the blood pressure was 128/75 mmHg. His pulse was 68 bpm and the respiratory rate was 16. No erythema within the treatment rai. Continue head and neck radiotherapy as prescribed. Signed by: Dr. Brian Kellogg 12/29/2021 9:39:16 AM
--- NOTE | 2022-01-05 09:11 | ONCRAD TMN_ITS ---
Radiation Oncology Treatment Management Note Patient Name: Antonio Parra Date of : 1970 Date of Service: 01/05/2022 Attending Physician: Brian Kellogg M.D. Antonio Parra is a 51 year old white male diagnosed with a recurrent buccal cancer. The patient was evaluated in February 2021 at the Otolaryngology Department of the [facility] for a right buccal lesion. Examination identified a 1.5 cm superficial ulceration with associated erythroplakia and leukoplakia. An excision was performed by Ed Guallpa M.D. on March 19, 2021. 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 The patient's postoperative convalescence was complicated by dehiscence of the buccal membrane sutures. He was evaluated for postoperative radiotherapy but in accordance to The National Cancer Network Guidelines adjuvant treatment was not recommended. He was evaluated at the Otolaryngology Clinic in August regarding a lesion in his mouth. Examination revealed a 3 cm by 2 cm exophytic mass of the right buccal mucosa associated with leukoplakia. An exam under anesthesia was completed by Ed Guallpa M.D. on October 02, 2021. Intra-operative findings included a mass that involved the right, posterior buccal mucosa with extension to the alveolar ridge, retromolar trigone, maxillary molar and soft palate. A biopsy of the right buccal lesion diagnosed an invasive, keratinizing squamous cell carcinoma. Additional biopsies of the retromolar trigone and alveolar ridge were negative for malignancy. A PET scan ordered on November 14, 2021 described a focus of hypermetabolic activity in the right retromolar trigone (SUV 6.3), right neck level II lymph node measuring 1.4 cm (SUV 3), right level I lymph node measuring 1.3 cm (SUV 2.6), and a sub-centimeter left level I lymph node (SUV 2.2). An ultrasonography of the neck revealed benign cervical lymphadenopathy. The patient has received 22 Gy of a prescribed 70 Babb with an intensity modulated radiotherapy plan utilizing a step and shoot treatment technique. He has been prescribed cisplatin (100 mg/m2) every 3 weeks during radiotherapy. Upon review of systems, he reported odynophagia and xerostomia. On physical examination, the patient weighed 253 lbs. His temperature was 98.6 ???F and the blood pressure was 127/72 mmHg. His pulse was 56 bpm and the respiratory rate was 16. A grade I mucositis was noted in the right buccal mucosa. Thera was no erythema within the treatment rai. Continue head and neck radiotherapy as planned. I prescribed oxycodone elixir for odynophagia. Signed by: Dr. Brian Kellogg 01/05/2022 9:10:05 AM
[2022-01-05 09:47] LABS: Basophils % 0.5 %; Eosinophils # 0.1 10^3/uL (0.0-0.8); Eosinophils % 1.1 %; Hematocrit 49.6 % (42.0-52.0); Hemoglobin 16.9 g/dL (11.7-16.6); Lymphocytes % 15.2 %; Mean Corpuscular HGB Conc 34.1 g/dL (30.0-36.0); Mean Corpuscular Hemoglobin 29.3 pg (28.0-34.0); Mean Platelet Volume 10.5 fL (7.4-10.4); Monocytes # 0.5 10^3/uL (0.2-0.9); Monocytes % 7.2 %; Neutrophils # 4.82 10^3/uL (1.8-7.7); Neutrophils % 75.7 %; Nucleated Red Blood Cells % 0 %; Platelet Count 99 10^3/cmm (130-400); Red Blood Count 5.77 10^6/uL (4.1-5.3); White Blood Count 6.4 10^3/uL (4.0-10.0)
[2022-01-05 10:21] LABS: Alanine Aminotransferase 18 U/L (0-41); Alkaline Phosphatase 66 IU/L (40-130); Blood Urea Nitrogen 18 mg/dL (6-20); Calcium 9.8 mg/dL (8.5-10.5); Carbon Dioxide 28 mmol/L (22-29); Chloride 100 mmol/L (98-107); Glucose 124 mg/dL (65-115); Osmolality Calculated 291 mOsm/kg (285-295); Sodium 139 mmol/L (136-145); Total Bilirubin 0.3 mg/dL (0.15-1.2)
[2022-01-05 10:30] LABS: Anion Gap 15.8 (5-19); Aspartate Amino Transferase 18 U/L (0-40); Potassium 4.8 mmol/L (3.5-5.1)
[2022-01-12 09:02] VITALS: BMI 35.2
[2022-01-19 08:48] VITALS: BMI 34.2
[2022-01-19 09:02] LABS: Basophils % 0.5 %; Eosinophils # 0.1 10^3/uL (0.0-0.8); Eosinophils % 3.3 %; Hematocrit 49.3 % (42.0-52.0); Hemoglobin 15.9 g/dL (11.7-16.6); Lymphocytes # 0.6 10^3/uL (0.8-4.8); Mean Corpuscular HGB Conc 32.3 g/dL (30.0-36.0); Mean Corpuscular Hemoglobin 28.8 pg (28.0-34.0); Mean Corpuscular Volume 89.3 fl (80-94); Mean Platelet Volume 10.1 fL (7.4-10.4); Monocytes # 0.3 10^3/uL (0.2-0.9); Monocytes % 7.5 %; Neutrophils % 72.4 %; Nucleated Red Blood Cells % 0 %; Platelet Count 107 10^3/cmm (130-400); Red Blood Count 5.52 10^6/uL (4.1-5.3); Red Cell Distribution Width 13.7 % (12.1-15.1)
[2022-01-19 09:30] LABS: Alanine Aminotransferase 14 U/L (0-41); Albumin Level 4.3 g/dL (3.5-5.2); Alkaline Phosphatase 62 U/L (40-130); Blood Urea Nitrogen 10 mg/dL (6-20); Calcium 9.5 mg/dL (8.5-10.5); Carbon Dioxide 28 mmol/L (22-29); Chloride 99 mmol/L (98-107); Globulin 2.7 g/dL (1.3-4.6); Glomerular Filtration Rate 88.3 mL/min (90-130); Glucose 186 mg/dL (65-115); Osmolality Calculated 288 mOsm/kg (285-295); Sodium 137 mmol/L (136-145); Total Bilirubin 0.3 mg/dL (0.15-1.2)
[2022-01-19 09:33] LABS: Anion Gap 14.1 (5-19); Aspartate Amino Transferase 15 U/L (0-40); Potassium 4.1 mmol/L (3.5-5.1)
--- NOTE | 2022-01-19 09:37 | ONCRAD TMN_ITS ---
Radiation Oncology Treatment Management Note Patient Name: Antonio Parra Date of : 1970 Date of Service: 01/19/2022 Attending Physician: Brian Kellogg M.D. Antonio Parra is a 51 year old white male diagnosed with a recurrent buccal cancer. The patient was evaluated in February 2021 at the Otolaryngology Department of the [facility] for a right buccal lesion. Examination identified a 1.5 cm superficial ulceration with associated erythroplakia and leukoplakia. An excision was performed by Ed Guallpa M.D. on March 19, 2021. 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 The patient's postoperative convalescence was complicated by dehiscence of the buccal membrane sutures. He was evaluated for postoperative radiotherapy but in accordance to The National Cancer Network Guidelines adjuvant treatment was not recommended. He was evaluated at the Otolaryngology Clinic in August regarding a lesion in his mouth. Examination revealed a 3 cm by 2 cm exophytic mass of the right buccal mucosa associated with leukoplakia. An exam under anesthesia was completed by Ed Guallpa M.D. on October 02, 2021. Intra-operative findings included a mass that involved the right, posterior buccal mucosa with extension to the alveolar ridge, retromolar trigone, maxillary molar and soft palate. A biopsy of the right buccal lesion diagnosed an invasive, keratinizing squamous cell carcinoma. Additional biopsies of the retromolar trigone and alveolar ridge were negative for malignancy. A PET scan ordered on November 14, 2021 described a focus of hypermetabolic activity in the right retromolar trigone (SUV 6.3), right neck level II lymph node measuring 1.4 cm (SUV 3), right level I lymph node measuring 1.3 cm (SUV 2.6), and a sub-centimeter left level I lymph node (SUV 2.2). An ultrasonography of the neck revealed benign cervical lymphadenopathy. The patient has received 42 Gy of a prescribed 70 Babb with an intensity modulated radiotherapy plan utilizing a step and shoot treatment technique. He has been prescribed cisplatin (100 mg/m2) every 3 weeks during radiotherapy. Upon review of systems, he did not describe any new symptoms. On physical examination, the patient weighed 248 lbs. His temperature was 97.5 ???F and the blood pressure was 111/72 mmHg. His pulse was 96 bpm and the respiratory rate was 18. A grade I mucositis was noted in the right buccal mucosa and right lateral tongue. Thera was a grade I erythema within the treatment rai. Continue head and neck radiotherapy as planned. Signed by: Dr. Brian Kellogg 01/19/2022 9:36:09 AM
[2022-01-19] MEDS: acetaminophen 325 mg Tablet 650 MG PO (10:19)
[2022-01-19] MEDS: OLANZapine 5 mg TABLET PO (10:20)
[2022-01-19] MEDS: sodium chloride 0.9% 250 ML 75 ML IV (12:15)
[2022-01-19] MEDS: palonosetron 0.25 mg/5 mL SDV IVP (12:20)
[2022-01-19] MEDS: famotidine 20 mg/2 mL INJ IVP (12:26)
[2022-01-19] MEDS: diphenhydrAMINE 50 mg/mL SDV 1mL 25 MG IVP (12:30)
[2022-01-19] MEDS: fosaprepitant 150 MG in sodium chloride 0.9% 150 ML 300 MG IV (12:32)
[2022-01-19] MEDS: potassium chloride 20 MEQ in sodium chloride 0.9% 500 ML 500 MEQ IV (15:37)
[2022-01-19] MEDS: FUROsemide 10 mg/mL SDV 2mL 20 MG IVP (15:39)
[2022-01-19 16:42] VITALS: BP 132/72; PULSE 55; RESP 18; TEMP 36.3; O2SAT 95
[2022-01-26] MEDS: sodium chloride 0.9% 1,000 ML 550 ML IV (11:15)
[2022-01-26] MEDS: ondansetron 2 mg/ML SDV 2 mL 8 MG IVP (11:16)
[2022-01-26] MEDS: famotidine 20 mg/2 mL INJ IVP (11:16)
[2022-01-26 11:22] LABS: Basophils % 0.8 %; Eosinophils % 0.5 %; Hematocrit 47.9 % (42.0-52.0); Hemoglobin 16.5 g/dL (11.7-16.6); Lymphocytes # 0.4 10^3/uL (0.8-4.8); Lymphocytes % 10.8 %; Mean Corpuscular HGB Conc 34.4 g/dL (30.0-36.0); Mean Corpuscular Hemoglobin 29.6 pg (28.0-34.0); Mean Platelet Volume 9.8 fL (7.4-10.4); Monocytes # 0.4 10^3/uL (0.2-0.9); Monocytes % 8.8 %; Neutrophils # 3.12 10^3/uL (1.8-7.7); Neutrophils % 78.6 %; Nucleated Red Blood Cells % 0 %; Platelet Count 96 10^3/cmm (130-400); Red Blood Count 5.57 10^6/uL (4.1-5.3); Red Cell Distribution Width 13.4 % (12.1-15.1)
[2022-01-26 11:43] LABS: Alanine Aminotransferase 25 U/L (0-41); Alkaline Phosphatase 63 U/L (40-130); Anion Gap 14.1 (5-19); Aspartate Amino Transferase 17 U/L (0-40); Blood Urea Nitrogen 19 mg/dL (6-20); Calcium 10.2 mg/dL (8.5-10.5); Carbon Dioxide 29 mmol/L (22-29); Chloride 98 mmol/L (98-107); Globulin 3.1 g/dL (1.3-4.6); Glomerular Filtration Rate 78.2 mL/min (90-130); Glucose 141 mg/dL (65-115); Osmolality Calculated 289 mOsm/kg (285-295); Potassium 4.1 mmol/L (3.5-5.1); Sodium 137 mmol/L (136-145); Total Bilirubin 0.4 mg/dL (0.15-1.2); Total Protein 7.1 g/dL (6.6-8.7)
--- NOTE | 2022-01-26 11:57 | ONCRAD TMN_ITS ---
Radiation Oncology Weekly Treatment Management Patient: Aida Alvarez> MR#: [id number] : 1970> Attending Physician: Dr. Oswaldo Travis Date of Service: 01/26/2022 Referring Physician(s) : Ed Guallpa Diagnosis: C06.0 - Malignant neoplasm of cheek mucosa, Diagnosed 03/19/2021 (Active) Radiotherapy to date: Course: [facility], Treatment Site: [facility] [place], Ref. ID: [id number], Energy: 6X, Dose/Fx (cGy): 200, #Fx: 24 35, Dose Correction (cGy): 0, Total Dose (cGy): 4,800, Start Date: 12/22/2021, Elapsed Days: Reason for visit: The patient is being seen today as part of their regularly scheduled weekly on treatment visits to assess for acute toxicities from radiotherapy. Review of Systems: He is seen before treatment. He did not come in on Wednesday because of very troublesome nausea.. He has nausea medication but states that he could not hold it down over the weekend. He thinks he may have gotten about 16 ounces of fluid down yesterday. He is experiencing weakness. He does not feel like he can take any solid food at all because of the nausea. He also was experiencing mucositis with pain of the right lateral tongue and buccal mucosa. He has Magic mouthwash and oxycodone elixir which helped the discomfort. He complains of discomfort related to skin reaction from radiation over the right lower lateral neck. He is applying Aquaphor with little relief. Vital Signs: Performed on 01/26/2022 10:28 AM BMI - 32.748 kg/m2 (high), Height - 71 in, Weight - 234.8 lbs, Temperature - 97.5 f, Pulse - 51 /min (low), Respiration - 16 /min, O2 Sat - 98 %, Pain - 7, Fatigue - 9 and BP - 139/ 81 mm(hg). Physical Exam: Alert, oriented, mild distress from nausea and pain. In the oral cavity he has moderate mucositis over the right floor of mouth, undersurface of the tongue, and right buccal mucosa. No evidence of yeast or viral ulcerations. Neck is free of lymphadenopathy. Over the right lower neck he has moderate dry desquamation with erythema. There is no moist desquamation. Lungs are clear to percussion. On auscultation no rales rhonchi or wheezes. Heart rhythm regular. No murmur or gallop. Imaging: Radiation therapy imaging related to accurate target localization (i.e. KV, MV and CBCT) was reviewed. Appropriate changes, if any, were made to ensure treatment accuracy. Plan: Hold treatment today and tomorrow. He will get IV fluids and IV antiemetics. He will try aloe vera gel with lidocaine for the skin reaction. I gave him the recipe for mixing salt and soda rinse. I instructed him on its use. Signed by: Dr. Oswaldo Travis 01/26/2022 11:55:42 AM
[2022-01-26 14:05] VITALS: BP 133/80; PULSE 51; RESP 16; TEMP 36.8; O2SAT 97
== END 2022-01-28 23:59 | disposition home or self-care (01) ==
PROVIDERS: Nurse Practitioner Family; Absent Provider Internal Medicine Medical Oncology; PCP Family Medicine; Visit Provider Specialist
DX: Z51.0 Encounter for antineoplastic radiation therapy; L59.8 Other specified disorders of the skin and subcutaneous tissue related to radiation; Z79.899 Other long term (current) drug therapy; Z53.9 Procedure and treatment not carried out, unspecified reason; C06.0 Malignant neoplasm of cheek mucosa; Z79.52 Long term (current) use of systemic steroids
CPT/HCPCS: 36415; 77336; 77386; 80053; 85025; 96365; 96366; 96367; 96375; 96413; 96415; 99024; 99215; J1100; J1200; J1453; J1940; J2405; J2469; J3475; J3480; J3490; J7030; J7040; J7050; J9060

== ENCOUNTER 2022-01-28 10:01 | Oncology outpatient (recurring) (ONCR) | payer BC, MEDICAID, SELFPAY ==
[2022-01-12 09:13] LABS: Basophils % 0.4 %; Eosinophils # 0.1 10^3/uL (0.0-0.8); Eosinophils % 3.6 %; Hematocrit 48.5 % (42.0-52.0); Hemoglobin 15.8 g/dL (11.7-16.6); Lymphocytes # 0.8 10^3/uL (0.8-4.8); Lymphocytes % 28.6 %; Mean Corpuscular HGB Conc 32.6 g/dL (30.0-36.0); Mean Corpuscular Hemoglobin 29.5 pg (28.0-34.0); Mean Corpuscular Volume 90.5 fl (80-94); Mean Platelet Volume 10.3 fL (7.4-10.4); Monocytes # 0.3 10^3/uL (0.2-0.9); Monocytes % 10.5 %; Neutrophils # 1.57 10^3/uL (1.8-7.7); Neutrophils % 56.9 %; Nucleated Red Blood Cells % 0 %; Platelet Count 161 10^3/cmm (130-400); Red Blood Count 5.36 10^6/uL (4.1-5.3); Red Cell Distribution Width 13.3 % (12.1-15.1); White Blood Count 2.8 10^3/uL (4.0-10.0)
[2022-01-12 10:25] LABS: Alanine Aminotransferase 15 U/L (0-41); Alkaline Phosphatase 64 U/L (40-130); Blood Urea Nitrogen 9 mg/dL (6-20); Calcium 9.2 mg/dL (8.5-10.5); Carbon Dioxide 27 mmol/L (22-29); Chloride 100 mmol/L (98-107); Globulin 2.8 g/dL (1.3-4.6); Glomerular Filtration Rate 88.3 mL/min (90-130); Glucose 149 mg/dL (65-115); Osmolality Calculated 289 mOsm/kg (285-295); Sodium 139 mmol/L (136-145); Total Bilirubin 0.2 mg/dL (0.15-1.2); Total Protein 6.8 g/dL (6.6-8.7)
[2022-01-12 10:34] LABS: Anion Gap 16.9 (5-19); Aspartate Amino Transferase 14 U/L (0-40); Potassium 4.9 mmol/L (3.5-5.1)
[2022-01-27 10:00] VITALS: BP 128/76; PULSE 52; RESP 18; TEMP 36.6; O2SAT 96
[2022-01-27] MEDS: sodium chloride 0.9% 1,000 ML 999 ML IV (11:08)
[2022-01-27] MEDS: sodium chloride 0.9% (100 ml) 100 ML 300 ML (11:09)
[2022-01-27] MEDS: dexamethasone 4 mg/mL INJ 12 MG INJECTION (11:09)
[2022-01-27] MEDS: ondansetron 2 mg/ML SDV 2 mL 8 MG IVP (11:10)
== END 2022-01-28 23:59 | disposition home or self-care (01) ==
PROVIDERS: Nurse Practitioner Family; PCP Family Medicine; Visit Provider Internal Medicine Medical Oncology
DX: C06.9 Malignant neoplasm of mouth, unspecified (principal); Z51.0 Encounter for antineoplastic radiation therapy
CPT/HCPCS: 77014; 77386; 77427; 80053; 85025; 96365; 96372; 96375; J1100; J2405; J7030

== ENCOUNTER 2022-02-12 10:02 | Oncology outpatient (recurring) (ONCR) | payer BC, MEDICAID, SELFPAY ==
--- NOTE | 2022-02-03 10:30 | ONCRAD TMN_ITS ---
Radiation Oncology Treatment Management Note Patient Name: Antonio Parra Date of : 1970 Date of Service: 02/03/2022 Attending Physician: Brian Kellogg M.D. Antonio Parra is a 51 year old white male diagnosed with a recurrent buccal cancer. The patient was evaluated in February 2021 at the Otolaryngology Department of the [facility] for a right buccal lesion. Examination identified a 1.5 cm superficial ulceration with associated erythroplakia and leukoplakia. An excision was performed by Ed Guallpa M.D. on March 19, 2021. 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 The patient's postoperative convalescence was complicated by dehiscence of the buccal membrane sutures. He was evaluated for postoperative radiotherapy but in accordance to The National Cancer Network Guidelines adjuvant treatment was not recommended. He was evaluated at the Otolaryngology Clinic in August regarding a lesion in his mouth. Examination revealed a 3 cm by 2 cm exophytic mass of the right buccal mucosa associated with leukoplakia. An exam under anesthesia was completed by Ed Guallpa M.D. on October 02, 2021. Intra-operative findings included a mass that involved the right, posterior buccal mucosa with extension to the alveolar ridge, retromolar trigone, maxillary molar and soft palate. A biopsy of the right buccal lesion diagnosed an invasive, keratinizing squamous cell carcinoma. Additional biopsies of the retromolar trigone and alveolar ridge were negative for malignancy. A PET scan ordered on November 14, 2021 described a focus of hypermetabolic activity in the right retromolar trigone (SUV 6.3), right neck level II lymph node measuring 1.4 cm (SUV 3), right level I lymph node measuring 1.3 cm (SUV 2.6), and a sub-centimeter left level I lymph node (SUV 2.2). An ultrasonography of the neck revealed benign cervical lymphadenopathy. The patient has received 56 Gy of a prescribed 70 Babb with an intensity modulated radiotherapy plan utilizing a step and shoot treatment technique. He has been prescribed cisplatin (100 mg/m2) every 3 weeks during radiotherapy. Upon review of systems, he did not describe any new symptoms. On physical examination, the patient weighed 248 lbs. His temperature was 97.5 ???F and the blood pressure was 111/72 mmHg. His pulse was 96 bpm and the respiratory rate was 18. A grade II mucositis was noted in the right buccal mucosa and right lateral tongue. Thera was a grade I erythema within the treatment rai. Continue head and neck radiotherapy as prescribed. He has been prescribed IVFs today. Signed by: Dr. Brian Kellogg 02/03/2022 10:29:06 AM
--- NOTE | 2022-02-03 10:31 | ONCRAD TMN_ITS ---
Radiation Oncology Treatment Management Note Patient Name: Antonio Parra Date of : 1970 Date of Service: 02/03/2022 Attending Physician: Brian Kellogg M.D. Antonio Parra is a 51 year old white male diagnosed with a recurrent buccal cancer. The patient was evaluated in February 2021 at the Otolaryngology Department of the [facility] for a right buccal lesion. Examination identified a 1.5 cm superficial ulceration with associated erythroplakia and leukoplakia. An excision was performed by Ed Guallpa M.D. on March 19, 2021. 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 The patient's postoperative convalescence was complicated by dehiscence of the buccal membrane sutures. He was evaluated for postoperative radiotherapy but in accordance to The National Cancer Network Guidelines adjuvant treatment was not recommended. He was evaluated at the Otolaryngology Clinic in August regarding a lesion in his mouth. Examination revealed a 3 cm by 2 cm exophytic mass of the right buccal mucosa associated with leukoplakia. An exam under anesthesia was completed by Ed Guallpa M.D. on October 02, 2021. Intra-operative findings included a mass that involved the right, posterior buccal mucosa with extension to the alveolar ridge, retromolar trigone, maxillary molar and soft palate. A biopsy of the right buccal lesion diagnosed an invasive, keratinizing squamous cell carcinoma. Additional biopsies of the retromolar trigone and alveolar ridge were negative for malignancy. A PET scan ordered on November 14, 2021 described a focus of hypermetabolic activity in the right retromolar trigone (SUV 6.3), right neck level II lymph node measuring 1.4 cm (SUV 3), right level I lymph node measuring 1.3 cm (SUV 2.6), and a sub-centimeter left level I lymph node (SUV 2.2). An ultrasonography of the neck revealed benign cervical lymphadenopathy. The patient has received 56 Gy of a prescribed 70 Babb with an intensity modulated radiotherapy plan utilizing a step and shoot treatment technique. He has been prescribed cisplatin (100 mg/m2) every 3 weeks during radiotherapy. Upon review of systems, he did not describe any new symptoms. On physical examination, the patient weighed 233 lbs. His temperature was 96.7 ???F and the blood pressure was 126/80 mmHg. His pulse was 50 bpm and the respiratory rate was 16. A grade II mucositis was noted in the right buccal mucosa and right lateral tongue. Thera was a grade I erythema within the treatment rai. Continue head and neck radiotherapy as prescribed. He has been prescribed IVFs today. Signed by: Dr. Brian Kellogg 02/03/2022 10:29:52 AM
[2022-02-03 11:23] LABS: Basophils % 0.4 %; Eosinophils % 0.4 %; Hematocrit 47.3 % (42.0-52.0); Hemoglobin 15.8 g/dL (11.7-16.6); Lymphocytes # 0.4 10^3/uL (0.8-4.8); Lymphocytes % 14.8 %; Mean Corpuscular HGB Conc 33.4 g/dL (30.0-36.0); Mean Corpuscular Hemoglobin 29.5 pg (28.0-34.0); Mean Corpuscular Volume 88.4 fl (80-94); Mean Platelet Volume 9.9 fL (7.4-10.4); Monocytes # 0.3 10^3/uL (0.2-0.9); Monocytes % 10.7 %; Neutrophils # 1.79 10^3/uL (1.8-7.7); Neutrophils % 73.7 %; Nucleated Red Blood Cells % 0 %; Platelet Count 119 10^3/cmm (130-400); Red Blood Count 5.35 10^6/uL (4.1-5.3); Red Cell Distribution Width 14.2 % (12.1-15.1); White Blood Count 2.4 10^3/uL (4.0-10.0)
[2022-02-03] MEDS: folic acid 1 MG, multivitamin inj 10 ML, thiamine 100 MG in sodium chloride 0.9% 1,000 ML 252.8 MG IV (11:29)
[2022-02-03 11:39] LABS: Alanine Aminotransferase 15 U/L (0-41); Albumin Level 4.3 g/dL (3.5-5.2); Alkaline Phosphatase 67 U/L (40-130); Aspartate Amino Transferase 12 U/L (0-40); Blood Urea Nitrogen 15 mg/dL (6-20); Calcium 9.7 mg/dL (8.5-10.5); Carbon Dioxide 30 mmol/L (22-29); Chloride 99 mmol/L (98-107); Globulin 2.9 g/dL (1.3-4.6); Glomerular Filtration Rate 101.1 mL/min (90-130); Glucose 127 mg/dL (65-115); Magnesium 1.6 mg/dL (1.7-2.3); Osmolality Calculated 282 mOsm/kg (285-295); Sodium 135 mmol/L (136-145); Total Bilirubin 0.3 mg/dL (0.15-1.2); Total Protein 7.2 g/dL (6.6-8.7)
[2022-02-03 11:43] LABS: Anion Gap 10.5 (5-19); Potassium 4.5 mmol/L (3.5-5.1)
[2022-02-03 13:45] VITALS: BP 161/77; PULSE 53; RESP 16; TEMP 36.6; O2SAT 98
[2022-02-09 11:26] LABS: Basophils % 0.5 %; Eosinophils % 1.4 %; Hematocrit 49.5 % (42.0-52.0); Hemoglobin 16.2 g/dL (11.7-16.6); Lymphocytes # 0.4 10^3/uL (0.8-4.8); Lymphocytes % 17.1 %; Mean Corpuscular HGB Conc 32.7 g/dL (30.0-36.0); Mean Corpuscular Hemoglobin 29.3 pg (28.0-34.0); Mean Corpuscular Volume 89.7 fl (80-94); Mean Platelet Volume 9.6 fL (7.4-10.4); Monocytes # 0.3 10^3/uL (0.2-0.9); Monocytes % 15.6 %; Neutrophils # 1.37 10^3/uL (1.8-7.7); Neutrophils % 64.9 %; Nucleated Red Blood Cells % 0 %; Platelet Count 119 10^3/cmm (130-400); Red Blood Count 5.52 10^6/uL (4.1-5.3); Red Cell Distribution Width 14.5 % (12.1-15.1); White Blood Count 2.1 10^3/uL (4.0-10.0)
[2022-02-09 11:44] LABS: Alanine Aminotransferase 18 U/L (0-41); Albumin Level 4.2 g/dL (3.5-5.2); Alkaline Phosphatase 80 U/L (40-130); Anion Gap 14.1 (5-19); Aspartate Amino Transferase 14 U/L (0-40); Blood Urea Nitrogen 14 mg/dL (6-20); Calcium 9.8 mg/dL (8.5-10.5); Carbon Dioxide 30 mmol/L (22-29); Chloride 98 mmol/L (98-107); Globulin 3.2 g/dL (1.3-4.6); Glomerular Filtration Rate 78.2 mL/min (90-130); Glucose 144 mg/dL (65-115); Osmolality Calculated 289 mOsm/kg (285-295); Potassium 4.1 mmol/L (3.5-5.1); Sodium 138 mmol/L (136-145); Total Bilirubin 0.3 mg/dL (0.15-1.2); Total Protein 7.4 g/dL (6.6-8.7)
--- NOTE | 2022-02-11 10:30 | USCV_ITS ---
Antonio Parra Age: 51 Gender: M : 1970 Exam Date: 02/11/2022 10:42 Ordering Phys: Brian Kellogg MD Technologist: BEVERLEY Exam Location: [facility] [place]_ Indication: LUE PALPABLE CORD HISTORY: Upper extremity pain. PROCEDURES: Venous duplex imaging was performed in only the left upper extremity. The following venous structures were evaluated: internal jugular vein, subclavian vein, axillary vein, and brachial veins. In addition, the basilic vein, cephalic vein, radial vein, and ulnar vein. Serial compression, augmentation maneuvers, and spectral Doppler flow evaluation were performed. FINDINGS: Non Compressible Left Basilic vein from prox-dist, and Non Compressible Left Cephalic vein from Forearm Prox-wrist. Consistent with occlusive thrombus. Remaining veins are normal. CONCLUSIONS Superficial thrombophlebitis is detected in the left basilic. Superficial thrombophlebitis is detected in the left cephalic. Report called at time of exam. Dr. Jacqueline Cedeño DO (Electronically Signed) Final Date: 11 February 2022 11:53 S
== END 2022-02-27 23:59 | disposition home or self-care (01) ==
LOC: ONCMED 02-18 13:26
PROVIDERS: Internal Medicine Medical Oncology; PCP Family Medicine; Visit Provider Radiology Radiation Oncology
DX: Z51.0 Encounter for antineoplastic radiation therapy (principal); C06.9 Malignant neoplasm of mouth, unspecified
CPT/HCPCS: 36415; 77014; 77336; 77386; 80053; 83735; 85025; 93971; 96365; 96366; J3411; J3490; J7030

== ENCOUNTER 2022-03-11 13:28 | Oncology outpatient (recurring) (ONCR) | payer BC, MEDICAID, SELFPAY ==
[2022-03-11 13:55] LABS: Basophils % 0.5 %; Eosinophils # 0.1 10^3/uL (0.0-0.8); Eosinophils % 1.4 %; Hematocrit 41.2 % (42.0-52.0); Hemoglobin 13.8 g/dL (11.7-16.6); Lymphocytes # 0.7 10^3/uL (0.8-4.8); Lymphocytes % 18.9 %; Mean Corpuscular HGB Conc 33.5 g/dL (30.0-36.0); Mean Corpuscular Hemoglobin 29.7 pg (28.0-34.0); Mean Corpuscular Volume 88.8 fl (80-94); Mean Platelet Volume 9.8 fL (7.4-10.4); Monocytes # 0.4 10^3/uL (0.2-0.9); Monocytes % 9.7 %; Neutrophils # 2.55 10^3/uL (1.8-7.7); Nucleated Red Blood Cells % 0 %; Platelet Count 174 10^3/cmm (130-400); Red Blood Count 4.64 10^6/uL (4.1-5.3); Red Cell Distribution Width 15.2 % (12.1-15.1); White Blood Count 3.7 10^3/uL (4.0-10.0)
[2022-03-11 14:20] LABS: Alanine Aminotransferase 11 U/L (0-41); Albumin Level 3.7 g/dL (3.5-5.2); Alkaline Phosphatase 72 U/L (40-130); Anion Gap 11.7 (5-19); Aspartate Amino Transferase 11 U/L (0-40); Blood Urea Nitrogen 11 mg/dL (6-20); Calcium 10.1 mg/dL (8.5-10.5); Carbon Dioxide 29 mmol/L (22-29); Chloride 97 mmol/L (98-107); Globulin 3.6 g/dL (1.3-4.6); Glomerular Filtration Rate 88.3 mL/min (90-130); Glucose 133 mg/dL (65-115); Osmolality Calculated 279 mOsm/kg (285-295); Potassium 3.7 mmol/L (3.5-5.1); Sodium 134 mmol/L (136-145); Total Bilirubin 0.3 mg/dL (0.15-1.2); Total Protein 7.3 g/dL (6.6-8.7)
--- NOTE | 2022-03-11 14:34 | ONCRAD EPV_ITS ---
Radiation Oncology Follow-Up Note Patient Name: Antonio Parra Date of : 1970 Date of Service: 03/11/2022 Attending Physician: Brian Kellogg M.D. Antonio Parra returned for a routinely scheduled follow-up appointment. He received completed definitive head and neck radiotherapy for the management of a recurrent buccal cancer. The patient was evaluated in February 2021 at the [facility] Department of Otolaryngology for a right buccal lesion. Examination identified a 1.5 cm superficial ulceration with associated erythroplakia and leukoplakia. An excision was performed by Ed Guallpa M.D. on March 19, 2021. 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 The patient's postoperative convalescence was complicated by dehiscence of the buccal membrane sutures. He was evaluated for postoperative radiotherapy but in accordance to The National Cancer Network Guidelines adjuvant treatment was not recommended. He was evaluated at the Otolaryngology Clinic in August regarding a lesion in his mouth. Examination revealed a 3 cm by 2 cm exophytic mass of the right buccal mucosa associated with leukoplakia. An exam under anesthesia was completed by Ed Guallpa M.D. on October 02, 2021. Intra-operative findings included a mass that involved the right, posterior buccal mucosa with extension to the alveolar ridge, retromolar trigone, maxillary molar and soft palate. A biopsy of the right buccal lesion diagnosed an invasive, keratinizing squamous cell carcinoma. Additional biopsies of the retromolar trigone and alveolar ridge were negative for malignancy. A PET scan ordered on November 14, 2021 described a focus of hypermetabolic activity in the right retromolar trigone (SUV 6.3), right neck level II lymph node measuring 1.4 cm (SUV 3), right level I lymph node measuring 1.3 cm (SUV 2.6), and a sub-centimeter left level I lymph node (SUV 2.2). An ultrasonography of the neck revealed benign cervical lymphadenopathy. Head and neck radiation therapy was delivered between the dates of December 22, 2021 through February 12, 2022. A prescribed dose of 70 Gy was delivered in 35 fractions encompassing 53 elapsed days. He was prescribed cisplatin (100 mg/m2) every 3 weeks during radiotherapy under the supervision of Stu Pagan M.D. (December 22, 2021 through January 192021) On review of systems, he described dysgeusia and xerostomia. Labs ordered did not reveal significant bone marrow suppression nor electrolyte abnormalities. On physical examination, the temperature is 97.6???F. His blood pressure was 99/65 mmHg. The pulse was 96 bpm and the respiratory rate was 18 breaths per minute. Examination of the oral cavity demonstrated a solitary area of healing mucositis on the right lateral aspect of the tongue. There was no cervical lymphadenopathy. In summary, Mr. Parra returned for a post-radiotherapy appointment. He has the anticipated sequelae from treatment. He will continue follow-up as scheduled with his nurses' registry director. Signed by: Dr. Brian Kellogg 03/11/2022 2:33:03 PM
--- NOTE | 2022-03-11 14:36 | ONCRAD EPV_ITS ---
Radiation Oncology Follow-Up Note Patient Name: Antonio Parra Date of : 1970 Date of Service: 03/11/2022 Attending Physician: Brian Kellogg M.D. Antonio Parra returned for a routinely scheduled follow-up appointment. He received completed definitive head and neck radiotherapy for the management of a recurrent buccal cancer. The patient was evaluated in February 2021 at the [facility] Department of Otolaryngology for a right buccal lesion. Examination identified a 1.5 cm superficial ulceration with associated erythroplakia and leukoplakia. An excision was performed by Ed Guallpa M.D. on March 19, 2021. 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 The patient's postoperative convalescence was complicated by dehiscence of the buccal membrane sutures. He was evaluated for postoperative radiotherapy but in accordance to The National Cancer Network Guidelines adjuvant treatment was not recommended. He was evaluated at the Otolaryngology Clinic in August regarding a lesion in his mouth. Examination revealed a 3 cm by 2 cm exophytic mass of the right buccal mucosa associated with leukoplakia. An exam under anesthesia was completed by Ed Guallpa M.D. on October 02, 2021. Intra-operative findings included a mass that involved the right, posterior buccal mucosa with extension to the alveolar ridge, retromolar trigone, maxillary molar and soft palate. A biopsy of the right buccal lesion diagnosed an invasive, keratinizing squamous cell carcinoma. Additional biopsies of the retromolar trigone and alveolar ridge were negative for malignancy. A PET scan ordered on November 14, 2021 described a focus of hypermetabolic activity in the right retromolar trigone (SUV 6.3), right neck level II lymph node measuring 1.4 cm (SUV 3), right level I lymph node measuring 1.3 cm (SUV 2.6), and a sub-centimeter left level I lymph node (SUV 2.2). An ultrasonography of the neck revealed benign cervical lymphadenopathy. Head and neck radiation therapy was delivered between the dates of December 22, 2021 through February 12, 2022. A prescribed dose of 70 Gy was delivered in 35 fractions encompassing 53 elapsed days. He was prescribed cisplatin (100 mg/m2) every 3 weeks during radiotherapy under the supervision of Stu Pagan M.D. (December 22, 2021 through January 192021) On review of systems, he described dysgeusia and xerostomia. Labs ordered did not reveal significant bone marrow suppression nor electrolyte abnormalities. On physical examination, he weighed 224 lbs. The temperature is 98???F and his blood pressure was 137/80 mmHg. The pulse was 98 bpm and his respiratory rate was 16 breaths per minute. Examination of the oral cavity demonstrated a solitary area of healing mucositis on the right lateral aspect of the tongue. There was no cervical lymphadenopathy. In summary, Mr. Parra returned for a post-radiotherapy appointment. He has the anticipated sequelae from treatment. He will continue follow-up as scheduled with his tax form preparer. Signed by: Dr. Brian Kellogg 03/11/2022 2:35:02 PM
== END 2022-03-30 23:59 | disposition home or self-care (01) ==
PROVIDERS: Internal Medicine Medical Oncology; PCP Family Medicine; Visit Provider Radiology Radiation Oncology
DX: C06.9 Malignant neoplasm of mouth, unspecified (principal)
CPT/HCPCS: 80053; 85025

== ENCOUNTER 2022-03-18 10:23 | Outpatient (CLI) | payer BC, MEDICAID, SELFPAY ==
--- NOTE | 2022-03-18 10:15 | USCV_ITS ---
Antonio Parra Age: 51 Gender: M : 1970 Exam Date: 03/18/2022 10:36 Ordering Phys: Brian Kellogg MD Technologist: CT Exam Location: [facility] [place] Indication: LT LEG SWELLINGS PROCEDURES: Venous duplex imaging was performed in only the left lower extremity. The following venous structures were evaluated: common femoral vein, profunda vein, proximal portion of the greater saphenous vein, superficial femoral vein, and the popliteal vein. In addition, the posterior tibial and peroneal trunk were evaluated. Serial compression, augmentation maneuvers, and spectral Doppler flow evaluation were performed. FINDINGS: No evidence of DVT seen in any vessel visualized at this time. CONCLUSIONS No evidence of left lower extremity DVT. Prominent Lymph node Left inguinal measuring 1.8cm Arben Weeks MD (Electronically Signed) Final Date: 18 March 2022 11:30 S
== END 2022-03-18 10:24 | disposition home or self-care (01) ==
LOC: RAD 10:24
PROVIDERS: PCP Family Medicine; Visit Provider Radiology Radiation Oncology
DX: M79.89 Other specified soft tissue disorders (principal)
CPT/HCPCS: 93971

== ENCOUNTER 2022-03-19 11:56 | Outpatient (CLI) | payer BC, MEDICAID, SELFPAY ==
--- NOTE | 2022-03-19 12:06 | USCV_ITS ---
Antonio Parra Age: 51 Gender: M : 1970 Exam Date: 03/19/2022 12:28 Ordering Phys: Brian Kellogg MD Technologist: DEL Exam Location: [facility] [place] Indication: History of thrombolitis with continued discomfort PROCEDURES: Venous duplex imaging was performed in only the left upper extremity. The following venous structures were evaluated: internal jugular vein, subclavian vein, axillary vein, and brachial veins. In addition, the basilic vein, cephalic vein, radial vein, and ulnar vein. Serial compression, augmentation maneuvers, and spectral Doppler flow evaluation were performed. FINDINGS: Thrombus appears to remain in the cephalic vein within the left upper extremity at the level of the forearm and wrist. All other veins examined appear free of thrombus at this time. CONCLUSIONS Persistent thrombus cephalic vein. Basilic thrombus has resolved since 02/19 Remainder LUE veins patent. Arben Weeks MD (Electronically Signed) Final Date: 19 March 2022 17:47 S
== END 2022-03-19 11:57 | disposition home or self-care (01) ==
LOC: RAD 11:57
PROVIDERS: PCP Family Medicine; Visit Provider Radiology Radiation Oncology
DX: I80.9 Phlebitis and thrombophlebitis of unspecified site (principal); M79.89 Other specified soft tissue disorders
CPT/HCPCS: 93971

== ENCOUNTER 2022-03-27 10:58 | Outpatient (CLI) | payer BC, MEDICAID, SELFPAY ==
--- NOTE | 2022-03-27 10:15 | USCV_ITS ---
ParraAntonio ravi Age: 51 Gender: M : 1970 Exam Date: 03/27/2022 11:04 Ordering Phys: Martha Eldridge MD Technologist: CT Exam Location: [facility] [place]_ Indication: lack of pulses, lft lower ext Risk Factors: Previous Vascular Surgery: RIGHT LEFT BP: 145.0 / 72.00 BP: 137.0/ 71.00 0 0 Waveform Velocity (cm/s) Velocity (cm/s) Waveform Iliac Prox 170.9 Triphasic Iliac Mid 148.9 Triphasic Iliac Distal 153.2 Triphasic ELECTRICAL WIRING LINEMAN 151.1 Triphasic SFA Prox 131.3 Triphasic SFA Mid 93.8 Triphasic SFA Dist 100.4 Triphasic POP 76.0 Triphasic PATTERN KEEPER 69.5 Triphasic DPA 81.5 Triphasic 1.1 HERNANDO 1.1 FINDINGS Resting HERNANDO of 1.1 bilaterally Normal arterial Doppler waveforms on the left side Normal Doppler velocities CONCLUSIONS 1. Normal resting ABIs bilaterally 2. Normal arterial Doppler waveforms and velocities suggesting no significant arterial obstruction on the left side Dr Jennifer Solomon MD FAC (Electronically Signed) Final Date: 30 March 2022 17:55 S
== END 2022-03-27 10:59 | disposition home or self-care (01) ==
PROVIDERS: PCP Family Medicine; Visit Provider Family Medicine
DX: R09.89 Other specified symptoms and signs involving the circulatory and respiratory systems (principal)
CPT/HCPCS: 80053; 80061; 83036; 84403; 84443; 93926

== ENCOUNTER → 2022-06-11 14:10 | Outpatient (BNVA) | payer BC, MEDICAID, SELFPAY | PROVIDERS: PCP Family Medicine; Visit Provider Family Medicine | DX: Z12.5 Encounter for screening for malignant neoplasm of prostate (principal); L73.9 Follicular disorder, unspecified; G47.00 Insomnia, unspecified | CPT/HCPCS: G0103 ==

== ENCOUNTER 2022-07-06 12:28 | Oncology outpatient (recurring) (ONCR) | payer BC, MEDICAID, SELFPAY ==
[2022-07-06 13:19] LABS: Basophils % 0.7 %; Eosinophils # 0.1 10^3/uL (0.0-0.8); Eosinophils % 2.8 %; Hematocrit 46.3 % (42.0-52.0); Hemoglobin 15.6 g/dL (11.7-16.6); Lymphocytes # 1.1 10^3/uL (0.8-4.8); Lymphocytes % 26.4 %; Mean Corpuscular HGB Conc 33.7 g/dL (30.0-36.0); Mean Corpuscular Hemoglobin 29.8 pg (28.0-34.0); Mean Corpuscular Volume 88.5 fl (80-94); Monocytes # 0.4 10^3/uL (0.2-0.9); Monocytes % 8.2 %; Neutrophils # 2.62 10^3/uL (1.8-7.7); Neutrophils % 61.7 %; Nucleated Red Blood Cells % 0 %; Platelet Count 183 10^3/cmm (130-400); Red Blood Count 5.23 10^6/uL (4.1-5.3); Red Cell Distribution Width 13.1 % (12.1-15.1); White Blood Count 4.3 10^3/uL (4.0-10.0)
[2022-07-06 13:39] LABS: Alanine Aminotransferase 13 U/L (0-41); Albumin Level 4.1 g/dL (3.5-5.2); Alkaline Phosphatase 61 U/L (40-130); Anion Gap 13.5 (5-19); Aspartate Amino Transferase 15 U/L (0-40); Blood Urea Nitrogen 20 mg/dL (6-20); Calcium 9.5 mg/dL (8.5-10.5); Carbon Dioxide 27 mmol/L (22-29); Chloride 98 mmol/L (98-107); Globulin 2.9 g/dL (1.3-4.6); Glomerular Filtration Rate 77.9 mL/min (90-130); Glucose 177 mg/dL (65-115); Osmolality Calculated 285 mOsm/kg (285-295); Potassium 4.5 mmol/L (3.5-5.1); Sodium 134 mmol/L (136-145); Total Bilirubin 0.2 mg/dL (0.15-1.2)
== END 2022-07-28 23:59 | disposition home or self-care (01) ==
PROVIDERS: Nurse Practitioner; PCP Family Medicine; Visit Provider Radiology Radiation Oncology
DX: C06.89 Malignant neoplasm of overlapping sites of other parts of mouth (principal); I82.612 Acute embolism and thrombosis of superficial veins of left upper extremity; Z79.01 Long term (current) use of anticoagulants; L73.9 Follicular disorder, unspecified; Z79.2 Long term (current) use of antibiotics; Z79.899 Other long term (current) drug therapy
CPT/HCPCS: 36415; 80053; 85025

== ENCOUNTER 2022-08-11 12:27 | Outpatient (CLI) | payer BC, MEDICAID, SELFPAY ==
--- NOTE | 2022-08-11 12:45 | USCV_ITS ---
Parra, Antonio Age: 52 Gender: M : 1970 Exam Date: 08/11/2022 13:08 Ordering Phys: Nicole Champion NP Technologist: CT Exam Location: [facility] [place] Indication: f/u exam left ceph forearm superficial thrombophlebitis PROCEDURES: Comparison:. 03/19/22 Venous duplex imaging was performed in only the left upper extremity. The following venous structures were evaluated: internal jugular vein, subclavian vein, axillary vein, and brachial veins. In addition, the basilic vein and cephalic vein. In addition, the radial vein and ulnar vein. FINDINGS: The veins of the left upper extremity are readily compressible with normal venous flow dynamics including spontaneous flow, respiratory phasic variation and augmentation. Evidence of chronic occlusive superficial thrombophlebitis in the left cephalic vein with abnormal flow dynamics. CONCLUSIONS No left upper extremity DVT. Chronic left cephalic vein superficial thrombophlebitis. Dr. Jacqueline Cedeño DO (Electronically Signed) Final Date: 11 August 2022 15:24 S
== END 2022-08-11 12:28 | disposition home or self-care (01) ==
LOC: RAD 12:31
PROVIDERS: PCP Family Medicine; Visit Provider Nurse Practitioner
DX: I82.612 Acute embolism and thrombosis of superficial veins of left upper extremity (principal); I80.8 Phlebitis and thrombophlebitis of other sites
CPT/HCPCS: 93971

== ENCOUNTER → 2022-09-08 11:46 | Outpatient (BNVA) | payer BC, MEDICAID, SELFPAY | PROVIDERS: PCP Family Medicine; Visit Provider Family Medicine | DX: M25.50 Pain in unspecified joint (principal) | CPT/HCPCS: 84550; 85025; 85651; 86038; 86431 ==

== ENCOUNTER 2022-10-05 12:55 | Oncology outpatient (recurring) (ONCR) | payer BC, MEDICAID, SELFPAY ==
[2022-10-05 13:24] LABS: Eosinophils # 0.1 10^3/uL (0.0-0.8); Eosinophils % 2.7 %; Hematocrit 44.6 % (42.0-52.0); Hemoglobin 14.7 g/dL (11.7-16.6); Lymphocytes # 0.9 10^3/uL (0.8-4.8); Lymphocytes % 20.6 %; Mean Corpuscular Hemoglobin 30.1 pg (28.0-34.0); Mean Corpuscular Volume 91.2 fl (80-94); Mean Platelet Volume 10.5 fL (7.4-10.4); Monocytes # 0.4 10^3/uL (0.2-0.9); Neutrophils # 2.75 10^3/uL (1.8-7.7); Neutrophils % 66.5 %; Nucleated Red Blood Cells % 0 %; Platelet Count 177 10^3/cmm (130-400); Red Blood Count 4.89 10^6/uL (4.1-5.3); Red Cell Distribution Width 13.8 % (12.1-15.1); White Blood Count 4.1 10^3/uL (4.0-10.0)
[2022-10-05 13:37] LABS: Erythrocyte Sedimentation Rate 13 mm/hr (0-10)
[2022-10-05 13:42] LABS: LAB Peripheral Smear Sent for Review
[2022-10-05 13:58] LABS: Alanine Aminotransferase 23 U/L (0-41); Alkaline Phosphatase 44 U/L (40-130); Anion Gap 14.3 (5-19); Aspartate Amino Transferase 15 U/L (0-40); Blood Urea Nitrogen 21 mg/dL (6-20); Calcium 9.7 mg/dL (8.5-10.5); Carbon Dioxide 26 mmol/L (22-29); Chloride 101 mmol/L (98-107); Globulin 2.7 g/dL (1.3-4.6); Glomerular Filtration Rate 63.1 mL/min (90-130); Glucose 216 mg/dL (65-115); Osmolality Calculated 294 mOsm/kg (285-295); Potassium 4.3 mmol/L (3.5-5.1); Sodium 137 mmol/L (136-145); Total Bilirubin 0.2 mg/dL (0.15-1.2); Total Protein 6.7 g/dL (6.6-8.7)
[2022-10-05 15:15] LABS: Thyroid Stimulating Hormone 1.08 uIU/mL (0.27-4.20); Vitamin B12 449 pg/mL (232-1245)
== END 2022-10-28 23:59 | disposition home or self-care (01) ==
LOC: ONCMED 12:56
PROVIDERS: Internal Medicine Medical Oncology; PCP Family Medicine; Visit Provider Radiology Radiation Oncology
DX: C06.89 Malignant neoplasm of overlapping sites of other parts of mouth (principal); R53.83 Other fatigue; G62.9 Polyneuropathy, unspecified
CPT/HCPCS: 36415; 80053; 82607; 84443; 85025; 85651; 86140

== ENCOUNTER 2022-10-15 13:34 | Outpatient (CLI) | payer BC, MEDICAID, SELFPAY ==
--- NOTE | 2022-10-15 14:00 | CT_ITS ---
WS: [id number] CT chest w con* [id number] HISTORY: Follow-up squamous cell cancer. TECHNIQUE: Axial imaging performed through the thorax. Coronal and sagittal reformats are submitted. All CT scans at [facility] use at least one of these dose optimization techniques: automated exposure control; mA and/or kV adjustment per patient size (includes targeted exams where dose is mat ched to clinical indication); or iterative reconstruction. CONTRAST: Omnipaque 350; 100 mL IV. DLP: 919.42 mGy.cm COMPARISON: Chest CT 05/21/2021 Lungs and central airway: Very minimal subsegmental linear atelectasis LEFT lung base with an associa lacey irregular nodular opacification measuring 10 x 14 mm medially. Suspect this is all related to ate lectasis or pneumonitis. As this nodular component is new will need to be reevaluated. Additional hor izontal atelectasis at the RIGHT lung base. Pleura: Normal. No pleural effusion. Heart and pericardium: Normal size heart with no pericardial effusion. Mediastinum and nathanael: No mediastinum or hilar adenopathy. Vessels: Normal size aortic and pulmonary artery. No coronary artery calcifications. Chest wall and lower neck: Mild gynecomastia. Upper abdomen: Small hiatal hernia. Hepatic steatosis. Stable appearing LEFT renal cyst measuring 2.5 x 1.4 cm. Incompletely visualized. No adrenal mass. Osseous structures: Moderate degenerative changes in the form of disc space narrowing and osteophytos is in the mid thoracic spine. No destructive bone lesions. CT/CT chest w con* [id number] IMPRESSION: 1. Medial LEFT lower lobe irregular nodule associated with linear atelectasis. Favor this is probably all related to atelectasis but the nodular component at the medial LEFT lung base needs further evaluation. Recommend follow-up chest CT in [address] evaluation should be sufficient. 2. No adenopathy. 3. Additional very minimal horizontal atelectasis at the RIGHT lung base. 4. Hepatic steatosis.
--- NOTE | 2022-10-15 14:00 | CT_ITS ---
WS: [id number] CT NECK WITH CONTRAST HISTORY: Follow-up squamous cell cancer mouth. TECHNIQUE: Contiguous 2 mm axial images are performed through the neck with intravenous contrast. Sag ittal and coronal reformats are also submitted. All CT scans at [facility] use at least one o f these dose optimization techniques: automated exposure control; mA and/or kV adjustment per patient size (includes targeted exams where dose is matched to clinical indication); or iterative reconstruc tion. CONTRAST: CONTRAST: Omnipaque 350; 100 mL IV. DLP: 919.42 mGy.cm COMPARISON: 05/19/2021 Nasopharynx, oropharynx, hypopharynx and larynx are unremarkable. No soft tissue masses or abnormal e nhancement. Torus tubarius and fossa of Rosenmuller and parapharyngeal fat are normal. No significant lymphadenopathy is identified. Thyroid gland and salivary glands are normally enhancing with no masses. No osseous abnormalities. Visualized portions of the skull base demonstrate no abnormalities. Orbits and globes are within norm al limits. No soft tissue masses. Visualized paranasal sinuses and mastoid air cells are normal. Lung apices are clear. Mild gynecomastia. CT/CT neck w con* [id number] IMPRESSION: 1. No mass or abnormal enhancement involving the oropharynx or tongue base. 2. No adenopathy.
[2022-10-15] MEDS: iohexol 350 mg/mL 500 mL Btl (per mL) IV (14:29)
== END 2022-10-15 13:35 | disposition home or self-care (01) ==
LOC: RAD 13:38
PROVIDERS: PCP Family Medicine; Visit Provider Internal Medicine Medical Oncology
DX: C06.9 Malignant neoplasm of mouth, unspecified (principal); R91.1 Solitary pulmonary nodule; J98.11 Atelectasis; K76.0 Fatty (change of) liver, not elsewhere classified
CPT/HCPCS: 70491; 71260; Q9967

== ENCOUNTER 2023-01-06 14:19 | Oncology outpatient (recurring) (ONCR) | payer BC, MEDICAID, SELFPAY ==
[2023-01-06 14:31] VITALS: BMI 34.9
[2023-01-06 14:32] VITALS: BP 169/83; PULSE 58; RESP 18; TEMP 36.6; O2SAT 97
[2023-01-06 14:45] LABS: Basophils % 0.5 %; Eosinophils # 0.1 10^3/uL (0.0-0.8); Eosinophils % 2.6 %; Hematocrit 48.1 % (42.0-52.0); Hemoglobin 16.5 g/dL (11.7-16.6); Lymphocytes # 0.8 10^3/uL (0.8-4.8); Lymphocytes % 19.7 %; Mean Corpuscular HGB Conc 34.3 g/dL (30.0-36.0); Mean Corpuscular Hemoglobin 31.1 pg (28.0-34.0); Mean Corpuscular Volume 90.6 fl (80-94); Monocytes # 0.3 10^3/uL (0.2-0.9); Neutrophils # 2.98 10^3/uL (1.8-7.7); Neutrophils % 69.7 %; Nucleated Red Blood Cells % 0 %; Platelet Count 139 10^3/cmm (130-400); Red Blood Count 5.31 10^6/uL (4.1-5.3); Red Cell Distribution Width 13.7 % (12.1-15.1); White Blood Count 4.3 10^3/uL (4.0-10.0)
[2023-01-06 15:13] LABS: Alanine Aminotransferase 29 U/L (0-41); Albumin Level 4.2 g/dL (3.5-5.2); Alkaline Phosphatase 42 U/L (40-130); Anion Gap 14.6 (5-19); Aspartate Amino Transferase 19 U/L (0-40); Blood Urea Nitrogen 18 mg/dL (6-20); Calcium 9.3 mg/dL (8.5-10.5); Carbon Dioxide 30 mmol/L (22-29); Chloride 96 mmol/L (98-107); Globulin 2.7 g/dL (1.3-4.6); Glomerular Filtration Rate 57.5 mL/min (90-130); Glucose 341 mg/dL (65-115); Osmolality Calculated 297 mOsm/kg (285-295); Potassium 4.6 mmol/L (3.5-5.1); Sodium 136 mmol/L (136-145); Total Bilirubin 0.2 mg/dL (0.15-1.2); Total Protein 6.9 g/dL (6.6-8.7)
[2023-01-06 16:51] LABS: Thyroid Stimulating Hormone 0.86 uIU/mL (0.27-4.20)
[2023-01-06 16:55] LABS: Estmated Average Glucose 243; Hemoglobin A1C 10.1 % (4.0-6.0)
== END 2023-01-28 23:59 | disposition home or self-care (01) ==
PROVIDERS: Internal Medicine Medical Oncology; PCP Family Medicine; Visit Provider Radiology Radiation Oncology
DX: C06.9 Malignant neoplasm of mouth, unspecified (principal); R53.83 Other fatigue; E11.9 Type 2 diabetes mellitus without complications
CPT/HCPCS: 36415; 80053; 83036; 84443; 85025

== ENCOUNTER → 2023-01-12 10:09 | Outpatient (BNVA) | payer BC, MEDICAID, SELFPAY | PROVIDERS: PCP Family Medicine; Visit Provider Internal Medicine Rheumatology | DX: Z79.899 Other long term (current) drug therapy (principal); M19.90 Unspecified osteoarthritis, unspecified site; E11.9 Type 2 diabetes mellitus without complications; Z11.59 Encounter for screening for other viral diseases; Z11.1 Encounter for screening for respiratory tuberculosis; M45.6 Ankylosing spondylitis lumbar region; C06.9 Malignant neoplasm of mouth, unspecified | CPT/HCPCS: 36415; 82947; 83036; 83520; 85651; 86140; 86200; 86480; 86704; 86803; 86812; 87340 ==

== ENCOUNTER 2023-01-18 14:32 | Outpatient (CLI) | payer BC, MEDICAID, SELFPAY ==
[2023-01-18] MEDS: iohexol 350 mg/mL 500 mL Btl (per mL) IV (14:53)
--- NOTE | 2023-01-18 15:30 | CT_ITS ---
WS: [id number] CT chest w con* [id number] HISTORY: 3 month follow up left lung nodule TECHNIQUE: Axial imaging performed through the thorax. Coronal and sagittal reformats are submitted. All CT scans at [facility] use at least one of these dose optimization techniques: automated exposure control; mA and/or kV adjustment per patient size (includes targeted exams where dose is mat ched to clinical indication); or iterative reconstruction. CONTRAST: Omnipaque 350; 100 mL IV. DLP: 506.11 mGy.cm COMPARISON: 10/15/2022, 05/21/2021 Lungs and central airway: Previously described opacification in the medial left lower lobe has comple tely resolved. The nodular component and the adjacent groundglass attenuation has completely resolved . No new mass or nodules. No pneumonia. Pleura: Normal. No pleural effusion. Heart and pericardium: Normal size heart with no pericardial effusion. Mediastinum and nathanael: No mediastinum or hilar adenopathy. Vessels: Normal size aortic and pulmonary artery. No coronary artery calcifications. Chest wall and lower neck: Very mild gynecomastia. Upper abdomen: Marked hepatic steatosis. Significant low-attenuation throughout the liver. There has been no change in appearance of the left kidney since the prior study. On the most recent s tudies there was a 6 cortical cyst. PET/CT was also negative from 11/14/2021. On today's imaging study there is a slight mass effect in a more solid component suspected with the entire cystic and solid c omplex measuring 4.1 x 4.2 cm. This needs to be evaluated for possible renal cell neoplasm. Osseous structures: Advanced degenerative changes in the mid thoracic spine. No destructive bone lesi ons are identified. IMPRESSION: 1. Complete resolution of the opacification and nodularity in the medial left lower lobe described on 10/15/2022. No suspicious mass or nodule. 2. Interval development of solid mass in the left kidney associated with the cyst that has been previ ously described. New solid component with the entire cystic and solid complex measuring 4.1 x 4.2 cm. Suspicious for renal cell neoplasm needs to be further evaluated as this is only incompletely imaged on today's examination. PET/CT from 2021 was negative. Recommend follow-up renal mass CT protocol or MRI renal mass protocol.
== END 2023-01-18 14:33 | disposition home or self-care (01) ==
PROVIDERS: PCP Family Medicine; Visit Provider Internal Medicine Medical Oncology
DX: C06.9 Malignant neoplasm of mouth, unspecified (principal)
CPT/HCPCS: 71260; Q9967

== ENCOUNTER → 2023-02-22 12:08 | Outpatient (BNVA) | payer BC, MEDICAID, SELFPAY | PROVIDERS: PCP Family Medicine; Visit Provider Internal Medicine Rheumatology | DX: Z79.899 Other long term (current) drug therapy (principal); M19.90 Unspecified osteoarthritis, unspecified site; E11.9 Type 2 diabetes mellitus without complications; M19.041 Primary osteoarthritis, right hand; M47.896 Other spondylosis, lumbar region | CPT/HCPCS: 72100; 72202; 73130; 73630 ==

== ENCOUNTER 2023-02-24 11:04 | Outpatient (CLI) | payer BC, MEDICAID, SELFPAY ==
--- NOTE | 2023-02-24 11:45 | MR_ITS ---
WS: [id number] MRI ABDOMEN WITH AND WITHOUT CONTRAST. COMPARISON: Chest CT 01/18/2023 Multiplanar, multisequence imaging is performed with and without contrast. ProHance 20 mL IV. LEFT kidney: Normal size LEFT kidney. T1 low signal and T2 intermediate signal mass centered in the u pper lateral LEFT kidney which bulges into the renal pelvis. There is moderate enhancement of the alessandro id mass. Mass measures approximately 3.2 x 3.2 x 3.7 cm. There is an adjacent cortical cyst being sli ghtly compressed by the mass but the cystic component measures 2.2 x 1.3 x 2.7 cm. The cyst does not enhance. No additional masses within the LEFT kidney. There is no obstruction. RIGHT kidney is negative. Moderate hepatic steatosis. Variable signal throughout the liver. The entire liver is not included on all sequences. Liver is enlarged and extends over a length of 18.6 cm. Spleen is normal size. No adr enal mass. Normal size aorta. No renal vein thrombosis or occlusion. IMPRESSION: 1. Solid slightly enhancing mass associate with the upper pole LEFT kidney measuring 3.2 x 3.2 x 3.7 cm. 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 There is an adjacent cystic component which is being compressed by the solid mass. The cystic component measures 2.2 x 1.3 x 2.7 cm. 2. No renal vein thrombosis. 3. No adenopathy. 4. Mild hepatic steatosis and hepatomegaly.
== END 2023-02-24 11:05 | disposition home or self-care (01) ==
LOC: RAD 11:06
PROVIDERS: PCP Family Medicine; Visit Provider Internal Medicine Medical Oncology
DX: N28.89 Other specified disorders of kidney and ureter (principal); R93.5 Abnormal findings on diagnostic imaging of other abdominal regions, including retroperitoneum; K76.0 Fatty (change of) liver, not elsewhere classified; R16.0 Hepatomegaly, not elsewhere classified
CPT/HCPCS: 74183; A9577

== ENCOUNTER 2023-04-07 12:48 | Oncology outpatient (recurring) (ONCR) | payer BC, MEDICAID, SELFPAY ==
[2023-04-07 12:59] VITALS: BP 150/80; PULSE 80; RESP 16; TEMP 36.9; O2SAT 95
[2023-04-07 13:26] LABS: Basophils % 0.8 %; Eosinophils # 0.1 10^3/uL (0.0-0.8); Eosinophils % 2.6 %; Hematocrit 48.3 % (37-53); Lymphocytes % 25.7 %; Mean Corpuscular HGB Conc 33.5 g/dL (30-55); Mean Corpuscular Hemoglobin 30.7 pg (27-33); Mean Corpuscular Volume 91.5 fl (82-101); Mean Platelet Volume 10.1 fL (7.4-10.4); Monocytes # 0.3 10^3/uL (0.2-0.9); Monocytes % 8.9 %; Neutrophils # 2.35 10^3/uL (1.8-7.7); Neutrophils % 61.5 %; Nucleated Red Blood Cells % 0 %; Platelet Count 146 10^3/cmm (157-399); Red Blood Count 5.28 10^6/uL (3.85-5.65); Red Cell Distribution Width 13.1 % (12.1-15.1); White Blood Count 3.82 10^3/uL (3.29-11.43)
[2023-04-07 13:37] LABS: Estmated Average Glucose 183
[2023-04-07 14:03] LABS: Alanine Aminotransferase 19 U/L (0-41); Albumin Level 4.5 g/dL (3.5-5.2); Alkaline Phosphatase 36 U/L (40-130); Aspartate Amino Transferase 21 U/L (0-40); Blood Urea Nitrogen 12 mg/dL (6-20); Calcium 9.9 mg/dL (8.5-10.5); Carbon Dioxide 31 mmol/L (22-29); Chloride 103 mmol/L (98-107); Chol HDL Ratio 3.59 mg/dL (1.0-5.00); Cholesterol 133 mg/dL (0-200); Globulin 2.4 g/dL (1.3-4.6); Glomerular Filtration Rate 69.8 mL/min (90-130); Glucose 170 mg/dL (65-115); HDL Cholesterol 37 mg/dL (60-100); LDL Cholesterol Calculated 77 mg/dL (50-129); LDL HDL Ratio 2.08 RATIO (0.00-3.22); Osmolality Calculated 298 mOsm/kg (285-295); Sodium 142 mmol/L (136-145); Thyroid Stimulating Hormone 1.42 uIU/mL (0.27-4.20); Total Bilirubin 0.2 mg/dL (0.15-1.2); Total Protein 6.9 g/dL (6.6-8.7); Triglycerides 94 mg/dL (0-150)
== END 2023-04-29 23:59 | disposition home or self-care (01) ==
PROVIDERS: PCP Family Medicine; Visit Provider Radiology Radiation Oncology
DX: E11.9 Type 2 diabetes mellitus without complications; E78.2 Mixed hyperlipidemia
CPT/HCPCS: 36415; 80053; 80061; 83036; 84443; 85025

== ENCOUNTER → 2023-07-07 09:50 | Outpatient (BNVA) | payer BC, MEDICAID, SELFPAY | PROVIDERS: PCP Family Medicine; Visit Provider Family Medicine | DX: E78.2 Mixed hyperlipidemia (principal); E11.9 Type 2 diabetes mellitus without complications; E29.1 Testicular hypofunction; G47.00 Insomnia, unspecified; Z79.899 Other long term (current) drug therapy | CPT/HCPCS: 80053; 80061; 83036; 84443; 85025; G0103 ==

== ENCOUNTER 2023-07-08 13:42 | Outpatient (CLI) | payer BC, MEDICAID, SELFPAY ==
--- NOTE | 2023-07-08 15:00 | CTR_ITS ---
PROCEDURE INFORMATION: Exam: CT Chest With Contrast; Diagnostic Exam date and time: 07/08/2023 3:09 PM Age: 53 years old Clinical indication: Condition or disease; Other: Kidney and mouth cancer; Prior surgery; Surgery date: 6+ months; Surgery type: Left kidney; Additional info: Surveillance, please schedule before 07/12/22 oncology f/u appointment TECHNIQUE: Imaging protocol: Diagnostic computed tomography of the chest with contrast. Radiation optimization: All CT scans at this facility use at least one of these dose optimization techniques: automated exposure control; mA and/or kV adjustment per patient size (includes targeted exams where dose is matched to clinical indication); or iterative reconstruction. Contrast material: OMNI 350; Contrast volume: 75 ml; Contrast route: INTRAVENOUS (IV); COMPARISON: CT chest w con* [id number] 01/18/2023 2:48 PM RADIATION DOSE METRICS: Total DLP (mGy-cm): 1410.26 FINDINGS: Thyroid: Grossly unremarkable. Lungs: No focal consolidation. Pleural spaces: No pleural effusion. No pneumothorax. Heart: No cardiomegaly. No pericardial effusion. There are incidental coronary artery calcifications. Mediastinal space: Trachea and central airways are grossly patent. No evidence of mediastinal mass or hematoma. Lymph nodes: No evidence of mediastinal or hilar adenopathy. Vasculature: No aneurysmal dilatation of the thoracic aorta. No evidence of dissection. Though this study is not tailored to evaluate for pulmonary thromboembolism, there is no evidence of PE within limitations of respiratory motion. Dilation of the pulmonary trunk to 3.1 cm, which can be seen with pulmonary arterial hypertension. Bones/joints: No evidence of acute fracture or aggressive osseous lesion. Moderate-severe degenerative changes of the midthoracic spine. Soft tissues: No fluid collection or hematoma in the superficial soft tissues. PROCEDURE INFORMATION: Exam: CT Abdomen And Pelvis With Contrast Exam date and time: 07/08/2023 3:09 PM Age: 53 years old Clinical indication: Condition or disease; Other: Kidney and mouth cancer; Prior surgery; Surgery date: 6+ months; Surgery type: Left kidney; Additional info: Surveillance, please schedule before 07/12/22 oncology f/u appointment TECHNIQUE: Imaging protocol: Computed tomography of the abdomen and pelvis with contrast. Radiation optimization: All CT scans at this facility use at least one of these dose optimization techniques: automated exposure control; mA and/or kV adjustment per patient size (includes targeted exams where dose is matched to clinical indication); or iterative reconstruction. Contrast material: OMNI 350; Contrast volume: 75 ml; Contrast route: INTRAVENOUS (IV); COMPARISON: MR abdomen wo/w con* [id number] 02/24/2023 11:23 AM RADIATION DOSE METRICS: Total DLP (mGy-cm): 1410.26 FINDINGS: Liver: Hepatomegaly and hepatic steatosis with right lobe measuring up to 20.5 cm. No evidence of focal hepatic lesion. Gallbladder and bile ducts: Unremarkable. No intra-hepatic or extra-hepatic biliary dilatation. Pancreas: Unremarkable. Spleen: Unremarkable. Adrenal glands: Unremarkable. Kidneys and ureters: Prior left-sided nephrectomy. No evidence of residual or recurrent neoplasm in the nephrectomy bed. No renal parenchymal abnormality on the right. No hydronephrosis or ureteral stone. Stomach and bowel: No evidence of bowel obstruction or perienteric inflammatory changes. There is mild wall thickening of the sigmoid colon, possibly secondary to prior bouts of diverticulitis. Consider correlation with follow-up colonoscopy to exclude an underlying mucosal lesion. Appendix: Normal appendix. Intraperitoneal space: No evidence of free air or fluid collection. Vasculature: No aneurysmal dilatation or dissection of the abdominal aorta. The celiac trunk, SMA and RED are grossly patent. No evidence of IVC thrombus. The portal vein, SMV and splenic veins are grossly patent. Lymph nodes: No adenopathy. Urinary bladder: Grossly unremarkable. Reproductive: Enlarged prostate measuring 5 cm. Consider correlation with serum laboratory findings and outpatient urologic evaluation. Patulous bilateral inguinal canals. Bones/joints: No evidence of acute fracture or aggressive osseous lesion. Moderate degeneration of the SI joints with partial ankylosis on the right. Soft tissues: No evidence of fluid collection or hematoma in the superficial soft tissues. CT/CT chest abdpel w/*[id number] IMPRESSION: 1. No evidence of metastatic disease in the chest. IMPRESSION: 1. No evidence of residual or recurrent disease in the abdomen or pelvis.
--- NOTE | 2023-07-08 15:00 | CTR_ITS ---
PROCEDURE INFORMATION: Exam: CT Neck With Contrast Exam date and time: 07/08/2023 3:14 PM Age: 53 years old Clinical indication: Condition or disease; Other: Kidney and mouth cancer; Prior surgery; Surgery date: 6+ months; Surgery type: Left kidney; Additional info: Surveillance, please schedule before 07/12/22 oncology f/u appointment TECHNIQUE: Imaging protocol: Computed tomography of the neck with contrast. Radiation optimization: All CT scans at this facility use at least one of these dose optimization techniques: automated exposure control; mA and/or kV adjustment per patient size (includes targeted exams where dose is matched to clinical indication); or iterative reconstruction. Contrast material: OMNI 350; Contrast volume: 75 ml; Contrast route: INTRAVENOUS (IV); COMPARISON: CT neck w con* [id number] 10/15/2022 2:06 PM RADIATION DOSE METRICS: Total DLP (mGy-cm): 263.79 FINDINGS: Pharynx: The nasopharynx, oropharynx and hypopharynx are grossly unremarkable. Larynx: The aryepiglottic folds, glottis and paraglottic soft tissues are grossly unremarkable. Prevertebral and retropharyngeal spaces: No evidence of fluid collection or edema. Salivary glands: The parotid and submandibular glands are unremarkable. Thyroid: Grossly unremarkable. Lymph nodes: No evidence of adenopathy. Trachea: The visualized upper airway is patent. Lungs: The visualized lung apices are clear. Bones/joints: No evidence of acute fracture or subluxation of the cervical spine. Vasculature: The origins of the great vessels are patent. The visualized aortic arch is unremarkable. The visualized carotid and vertebral arteries are grossly patent. The visualized internal jugular veins are patent without evidence of thrombosis. Soft tissues: Grossly unremarkable. CT/CT neck w con* [id number] IMPRESSION: 1. No evidence of residual or recurrent disease in the neck. If there is ongoing clinical concern, consider correlation with MRI of the neck with/without contrast.
[2023-07-08] MEDS: iohexol 350 mg/mL 500 mL Btl (per mL) PO (15:31)
[2023-07-08] MEDS: iohexol 350 mg/mL 500 mL Btl (per mL) IV ×2 (15:31)
== END 2023-07-08 13:43 | disposition home or self-care (01) ==
LOC: RAD 13:42
PROVIDERS: PCP Family Medicine; Visit Provider Nurse Practitioner Family
DX: C06.9 Malignant neoplasm of mouth, unspecified (principal); Z90.5 Acquired absence of kidney
CPT/HCPCS: 70491; 71260; 74177; Q9967

== ENCOUNTER 2023-07-12 12:45 | Oncology outpatient (recurring) (ONCR) | payer BC, MEDICAID, SELFPAY ==
[2023-07-12 13:09] LABS: Basophils % 0.4 %; Eosinophils # 0.1 10^3/uL (0.0-0.8); Eosinophils % 2.5 %; Hematocrit 47.8 % (37-53); Lymphocytes # 1.1 10^3/uL (0.8-4.8); Lymphocytes % 23.6 %; Mean Corpuscular HGB Conc 33.3 g/dL (30-55); Mean Corpuscular Hemoglobin 31.4 pg (27-33); Mean Corpuscular Volume 94.3 fl (82-101); Mean Platelet Volume 10.2 fL (7.4-10.4); Monocytes # 0.5 10^3/uL (0.2-0.9); Monocytes % 11.1 %; Neutrophils # 2.96 10^3/uL (1.8-7.7); Nucleated Red Blood Cells % 0 %; Platelet Count 134 10^3/cmm (157-399); Red Blood Count 5.07 10^6/uL (3.85-5.65); Red Cell Distribution Width 13.3 % (12.1-15.1); White Blood Count 4.78 10^3/uL (3.29-11.43)
[2023-07-12 13:28] LABS: Alanine Aminotransferase 17 U/L (0-41); Albumin Level 4.6 g/dL (3.5-5.2); Alkaline Phosphatase 40 U/L (40-130); Anion Gap 14.4 (5-19); Aspartate Amino Transferase 20 U/L (0-40); Blood Urea Nitrogen 21 mg/dL (6-20); Calcium 9.5 mg/dL (8.5-10.5); Carbon Dioxide 28 mmol/L (22-29); Chloride 103 mmol/L (98-107); Globulin 3.2 g/dL (1.3-4.6); Glomerular Filtration Rate 31.2 mL/min (90-130); Glucose 104 mg/dL (65-115); Osmolality Calculated 293 mOsm/kg (285-295); Potassium 5.4 mmol/L (3.5-5.1); Sodium 140 mmol/L (136-145); Thyroid Stimulating Hormone 3.58 uIU/mL (0.27-4.20); Total Bilirubin 0.2 mg/dL (0.15-1.2); Total Protein 7.8 g/dL (6.6-8.7)
== END 2023-07-29 23:59 | disposition home or self-care (01) ==
PROVIDERS: Nurse Practitioner Family; PCP Family Medicine; Visit Provider Radiology Radiation Oncology
DX: Z85.818 Personal history of malignant neoplasm of other sites of lip, oral cavity, and pharynx; Z08 Encounter for follow-up examination after completed treatment for malignant neoplasm; E11.65 Type 2 diabetes mellitus with hyperglycemia; Z79.899 Other long term (current) drug therapy; Z92.3 Personal history of irradiation; Z92.21 Personal history of antineoplastic chemotherapy; Z85.528 Personal history of other malignant neoplasm of kidney; Z90.5 Acquired absence of kidney; Z87.891 Personal history of nicotine dependence; Z79.85 Long-term (current) use of injectable non-insulin antidiabetic drugs
CPT/HCPCS: 36415; 80053; 84443; 85025

== ENCOUNTER → 2023-09-15 10:59 | Outpatient (BNVA) | payer MEDICARE, SELFPAY | PROVIDERS: PCP Family Medicine; Visit Provider Otolaryngology | DX: C06.9 Malignant neoplasm of mouth, unspecified (principal); K13.79 Other lesions of oral mucosa; K12.33 Oral mucositis (ulcerative) due to radiation; K13.21 Leukoplakia of oral mucosa, including tongue; H61.21 Impacted cerumen, right ear; K42.9 Umbilical hernia without obstruction or gangrene | CPT/HCPCS: 99214; 99215 ==

== ENCOUNTER → 2023-09-23 13:41 | Outpatient (BNVA) | payer MEDICARE, MEDICAID, SELFPAY | PROVIDERS: PCP Family Medicine; Visit Provider Surgery | DX: K43.2 Incisional hernia without obstruction or gangrene (principal); L98.9 Disorder of the skin and subcutaneous tissue, unspecified | CPT/HCPCS: 99204 ==

== ENCOUNTER 2023-10-05 11:57 | Day surgery (SDC) | payer MEDICARE, SELFPAY ==
[2023-10-05] VITALS (8 sets, daily range): BP systolic 148–177; BP diastolic 68–98; PULSE 55–80; RESP 17–21; TEMP 36.1–36.4; O2SAT 92–100; BMI 34.2
[2023-10-05] MEDS: sodium chloride 0.9% 1,000 ML 30 ML IV (12:26)
--- NOTE | 2023-10-05 12:28 | W.PM.OPSUD ---
Surgery/Procedure H&P Update DATE OF PROCEDURE: October 05, 2023 DATE H&P PERFORMED: 09/23/23 H&P UPDATE INFORMATION: I have reviewed H&P completed within last 30 days, I have examined patient prior to procedure and No changes to prior documentation PLANNED PROCEDURE: Operation Date: 10/05/23 14:10 Proposed Procedures p Laparoscopic Umbilical Hernia Repair w/ Mesh [id number],K42.9, K98.9(Not Applicable) - DO luma Hernandez Excision Mass/Lesion/Cyst Upper Torso/(Not Applicable) - Clay Vogt DO
--- NOTE | 2023-10-05 12:33 | ANES.PREANE2 ---
Pre-Anesthetic Assessment Height/Weight: Height 1.8 m Weight 111.13 kg Temp Pulse Resp BP Pulse Ox O2 Del Method 97.4 F L 55 L 17 171/98 96 Room Air 10/05/23 12:06 10/05/23 12:06 10/05/23 12:06 10/05/23 12:06 10/05/23 12:10/05/23 12:14 Operation Date: 10/05/23 14:10 Proposed Procedures p Laparoscopic Umbilical Hernia Repair w/ Mesh [id number],K42.9, K98.9(Not Applicable) - DO luma Hernandez Excision Mass/Lesion/Cyst Upper Torso/(Not Applicable) - Clay Vogt DO Familial anesthetic complications: None Was Beta Yasmani taken within 24 hours: N/A Was Clonidine taken within 24 hours: N/A Last intake: Intake Last Liquid Date 10/04/23 Last Liquid Time 20:00 Last Solid Date 10/04/23 Last Solid Time 20:00 Social Tobacco and No alcohol Exam alert, oriented x 3, clear to auscultation bilaterally and regular rate & rhythm Airway Mallampati: Class III Dentition: full Metabolic Diabetes Mellitus and Morbid Obesity Anesthetic Plan ASA status: 2 Anesthesia: General Risk of > 500 ml blood loss (7ml/kg in children): No Medications/Allergies Home Medications Medication Instructions Recorded Confirmed Last Taken Type tadalafil 5 mg tablet 5 mg PO DAILY #30 tabs 01/04/23 10/05/23 Unknown Rx acetaminophen 500 mg capsule 500 mg PO BID 01/12/23 10/04/23 10/04/23 History tadalafil 20 mg tablet (Cialis) 20 mg PO DAILY PRN sexual activity 02/11/23 10/04/23 Unknown Rx #30 tabs gabapentin 800 mg tablet 800 mg PO TID #270 tabs 04/07/23 10/04/23 10/04/23 Rx syringe 21 gauge 3 cc #10 ea 04/07/23 09/23/23 Unknown Rx hydroxychloroquine 200 mg tablet 200 mg PO BID #180 tabs 05/17/23 10/04/23 10/04/23 Rx leflunomide 20 mg tablet 20 mg PO DAILY #30 tabs 05/17/23 10/04/23 10/04/23 Rx prednisone 5 mg tablet 5 mg PO DAILY #30 tabs 05/17/23 10/04/23 10/04/23 Rx sulfasalazine 500 mg tablet 0.5 g PO BID #180 tabs 05/17/23 10/04/23 10/04/23 Rx fenofibrate 160 mg tablet 160 mg PO DAILY 30 days #30 tabs 07/05/23 10/04/23 10/04/23 Rx metformin 1,000 mg tablet 1,000 mg PO BID #60 tabs 07/05/23 10/04/23 10/04/23 Rx testosterone cypionate 200 mg/mL 200 mg SUBCUT .monthly #1 mL 07/05/23 10/04/23 09/29/23 Rx intramuscular oil diclofenac sodium 75 mg 75 mg PO BID 10/04/23 10/04/23 10/04/23 History tablet,delayed release hydrocodone 10 mg-acetaminophen 1 tab PO Q8H PRN pain 23 days #69 10/04/23 Unknown Rx 325 mg tablet tabs tamsulosin 0.4 mg capsule 0.4 mg PO DAILY 10/04/23 10/04/23 10/04/23 History tizanidine 4 mg tablet 4 mg PO BID muscle spasms 10/04/23 10/04/23 Unknown History trazodone 100 mg tablet 100 mg PO BEDTIME 10/04/23 10/04/23 10/03/23 History Allergies Allergy/AdvReac Type Severity Reaction Status Date / Time lisinopril Allergy Unknown Verified 10/05/23 12:09 Current Medications Generic Name Dose Route Start Last Admin Trade Name Freq PRN Reason Stop Dose Admin Sodium Chloride 1,000 mls @ 30 mls/hr 10/05/23 12:00 10/05/23 12:26 Sodium Chloride 0.9% IV 10/06/23 11:59 30 mls/hr .Q24H JOSH Administration PFSH Anesthesia Medical History Left kidney mass High risk medication use Obstructive sleep apnea Degenerative joint disease Androgen deficiency Recurrent squamous cell carcinoma of mouth Aortic valve sclerosis Essential (primary) hypertension Type 2 diabetes mellitus without complications Hyperlipemia, mixed Surgical History History of left nephrectomy (03/2023) History of surgical procedure on mouth (10/02/21) Multiple biopsies of malignancy of right retromolar trigone and adjacent tissues History of surgical procedure on mouth (03/19/21) Incisional biopsy of right buccal membrane and retromolar trigone soft tissue Hx of carpal tunnel repair Family History Grandfather No problems noted. Father Cancer lung Lung disease Hypertension Mother Diabetes Other Rheumatoid arthritis Denies family history of Lupus Chronic kidney disease (CKD) Stroke Social History Smoking and tobacco/nicotine status: current every day tobacco/nicotine user Quit status (tobacco/nicotine): has quit using Year quit tobacco: 2021 Former quit date comment: Smoked for 40 years Alcohol intake: never Substance/Drug Use: never Adopted: No Lives independently: Yes Household members: none Housing: House Marital status: Number of children: 2 Highest education level completed: 9th Grade service: No Current occupational status: employed Pets and animals: Yes Current gender identity: Male Data Anesthesia Cardiac Studies: No Data to Display
[2023-10-05 13:11] LABS: Anion Gap 15.6 (5-19); Blood Urea Nitrogen 20 mg/dL (6-20); Calcium 9.2 mg/dL (8.5-10.5); Carbon Dioxide 24 mmol/L (22-29); Chloride 104 mmol/L (98-107); Creatinine Clr Calc Pharmacy 58.7864; Glomerular Filtration Rate 39.4 mL/min (90-130); Glucose 112 mg/dL (65-115); Osmolality Calculated 291 mOsm/kg (285-295); Potassium 4.6 mmol/L (3.5-5.1); Sodium 139 mmol/L (136-145)
[2023-10-05] MEDS: ceFAZolin 2,000 MG in sodium chloride 0.9% (plus) 50 ML 100 MG IV (14:12)
[2023-10-05 14:49] LABS: Glucose Point of Care 114 mg/dL (70-110)
--- NOTE | 2023-10-05 15:05 | P.OP_ITS ---
Operative Report Date of procedure: October 20, 2023 Pre-op diagnosis: Skin lesion of back Incisional hernia Post-op diagnosis: same Procedure done: Excision of skin lesion of back (1.5 cm excision of lesion with undetermined malignant potential) Laparoscopic repair of incisional hernia with mesh (3.5 cm) Implants: 6 inch round Ventralight mesh Specimens removed/disposition: 1.5 cm excision of skin lesion of back with undetermined malignant potential Hernia sac Surgeon: Clay Vogt DO Anesthesia: General Estimated blood loss (mL): 5 Complications: None apparent Brief History: Is a very pleasant 53-year-old gentleman who presented to my office with a skin lesion on his back that has been growing larger and he desired excision. He also has a painful and enlarging incisional hernia following kidney surgery. Excision of skin lesion of back and laparoscopic repair of incisional hernia with mesh were indicated. The risks and benefits were explained and documented. Procedure: Patient was wheeled operative room placed on the OR table. General endotracheal intubation was achieved by the department of anesthesia. The area of concern in the left upper back was inspected prepped and draped in usual sterile fashion. Timeout was performed. All present were in agreement. 2% lidocaine with epinephrine was used to anesthetize the area over the skin lesion which measured approximately 1.4 cm. A 10 blade scalpel was used to make an elliptical excision measuring 3.5 x 1.5 cm. Electrocautery was used to dissect down through the dermis and subcutaneous tissue. The specimen was then sent off for pathology. Hemostasis was achieved electrocautery. The skin was then approximated using 3-0 Vicryl suture in vertical mattress and simple interrupted fashions. Sterile bandage was applied. Patient was then put into the prone position. Abdomen was inspected prepped and draped in usual sterile fashion. A 15 blade scalp was used to make a 5 millimeter incision left upper quadrant. A Veress needle was placed into the incision and intra-abdominal insufflation was brought to 15 millimeters of mercury. A 12 millimeter trocar was placed into the left lower quadrant. The energy but device was then used to cut out the hernia sac. The hernia defect m easured 3.5 cm in diameter. A 6 inch ventral light mesh was placed into the abdomen and brought up through the umbilicus using an the Hans-Erick. The mesh was then tacked in place in a double crown fashion. The skeleton of the mesh was removed via the left lower quadrant. The hernia sac was then removed from the abdomen via the left lower quadrant. The left lower quadrant port site was closed with an 0 Vicryl suture in a Hans-Erick in a [id number] fashion. Incisions were closed with 4 O Vicryl in a subcuticular interrupted fashion. Skin glue was applied. Patient tolerated the procedure well.
[2023-10-05] MEDS: lidocaine-epi 1% 20 mL INJ 10 ML INJECTION (15:18)
[2023-10-05] MEDS: neomycin-poly-bacitracin oint 28 gm 1 APPLIC TOPICAL (15:19)
[2023-10-05] MEDS: HYDROmorphone 1 mg/mL INJ 1 mL 0.5 MG IVP (16:33)
--- NOTE | 2023-10-05 16:37 | SUR.PHASEII ---
Patient arrived to Post-op with 10/10 pain, unable to sit up due to pain and not breathing due to pain, sats dropping to mid 80's due to pain when breathing. Patient was placed on nasal cannula at 2 liters and administered 0.5mg Dilaudid for pain.
[2023-10-05] MEDS: HYDROcodone-acetaminophen 10-325 mg Tablet 1 TAB PO (17:06)
--- NOTE | 2023-10-05 17:35 | ANE.PACU2 ---
Inpatient post-anesthesia follow up: Airway intact: Yes Vital signs: Temperature 97.0 F Pulse Rate 67 Respiratory Rate 17 Blood Pressure 152/74 Pulse Oximetry 93 Oxygen Delivery Me thod Room Air Oxygen Flow Rate 8 Fraction of Inspir ed Oxygen Hydration adequate: Yes Nausea and vomiting: No Pain level: 1 Mental status: Baseline
== END 2023-10-05 17:34 | disposition home or self-care (01) ==
PROVIDERS: PCP Family Medicine; Visit Provider Surgery
PROC: 0WQF4ZZ Repair Abdominal Wall, Percutaneous Endoscopic Approach (ICD-10-PCS; CPT 11602; principal; 2023-10-05 14:00)
PROC: (CPT 11602; 2023-10-05 14:00)
DX: C44.529 Squamous cell carcinoma of skin of other part of trunk (principal); K43.2 Incisional hernia without obstruction or gangrene; E11.9 Type 2 diabetes mellitus without complications; E66.01 Morbid (severe) obesity due to excess calories; Z68.34 Body mass index [BMI] 34.0-34.9, adult; G47.33 Obstructive sleep apnea (adult) (pediatric); E78.2 Mixed hyperlipidemia; F17.210 Nicotine dependence, cigarettes, uncomplicated
CPT/HCPCS: 11602; 49593; 36416; 80048; 82962; 88302; 88304; J0690; J1100; J1170; J2250; J2405; J2704; J2710; J3010; J3490; J7030

== ENCOUNTER → 2023-10-18 15:46 | Outpatient (BNVA) | payer MEDICARE, SELFPAY | PROVIDERS: PCP Family Medicine; Visit Provider Surgery | DX: Z98.890 Other specified postprocedural states; Z87.19 Personal history of other diseases of the digestive system | CPT/HCPCS: 99024 ==

== ENCOUNTER → 2023-10-19 11:23 | Outpatient (BNVA) | payer MEDICARE, SELFPAY | PROVIDERS: PCP Family Medicine; Visit Provider Family Medicine | DX: E78.2 Mixed hyperlipidemia (principal); E11.9 Type 2 diabetes mellitus without complications; E29.1 Testicular hypofunction; G47.00 Insomnia, unspecified | CPT/HCPCS: 80053; 80061; 83036; 84403; 84443; 85025 ==

== ENCOUNTER 2023-10-26 09:53 | Day surgery (SDC) | payer MEDICARE, SELFPAY ==
[2023-10-26] VITALS (7 sets, daily range): BP systolic 97–134; BP diastolic 53–78; PULSE 46–57; RESP 12–20; TEMP 36–36.8; O2SAT 90–100; BMI 33.5
[2023-10-26] MEDS: sodium chloride 0.9% 1,000 ML 30 ML IV (09:45)
--- NOTE | 2023-10-26 10:11 | W.PM.OPSUD ---
Surgery/Procedure H&P Update DATE OF PROCEDURE: October 26, 2023 DATE H&P PERFORMED: 10/18/23 H&P UPDATE INFORMATION: I have reviewed H&P completed within last 30 days, I have examined patient prior to procedure and No changes to prior documentation PLANNED PROCEDURE: Operation Date: 10/26/23 11:45 Proposed Procedures p re excision squamous cell carcinoma /Excision Mass/Lesion/Cyst Upper Torso/He(Not Applicable) - Clay Vogt DO
--- NOTE | 2023-10-26 10:18 | P.ANESUD_ITS ---
Pre-Anesthetic Update Pre-Anesthetic Assessment: Date of Surgery/Procedure: 10/26/23 Proposed Procedure: Operation Date: 10/26/23 11:45 Proposed Procedures p re excision squamous cell carcinoma /Excision Mass/Lesion/Cyst Upper To rso/He(Not Applicable) - Clay Vogt, DO Any changes to Pre-Anesthetic Assessment?: No Last Intake: > 8 hrs Exam: Pre-Anes Outpt Exam: alert, oriented x 3, clear to auscultation bilaterally and regular rate & rhythm Other Pertinent Information: Other Pertinent Information: MAC Cardiac Studies: No Data to Display
[2023-10-26 10:52] LABS: Glucose Point of Care 123 mg/dL (70-110)
[2023-10-26] MEDS: ceFAZolin 2,000 MG in sodium chloride 0.9% (plus) 50 ML 100 MG IV (10:52)
--- NOTE | 2023-10-26 11:15 | PM.OP ---
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 He was originally thought to be a basal cell carcinoma but pathology showed to be a squamous cell carcinoma. Reexcision of squamous cell carcinoma of back from margins was indicated. We need at least 2 mm margins, with special attention paid to superior and inferior margins due to the nature of the elliptical excision. The risks and benefits of procedure were explained and documented. Procedure: Patient was wheeled operative room placed on the OR table in the right lateral decubitus position. Adequate sedation was achieved by department anesthesia. The back was inspected prepped and draped in usual sterile fashion. A timeout was performed. All present were in agreement. 2% lidocaine with epinephrine was used to anesthetize the area of concern in the left upper back. A 10 blade scalpel was then used to make an elliptical excision around the previous excision. The previous excision had opened up after the sutures were removed 2 weeks postoperatively. Excision measured 4.5 x 2.8 cm. Electrocautery was used and cut mode is set down through the dermis and then an cautery mode to dissect through the subcutaneous fat. Specimen was marked with a 2-0 nylon in the left lateral position and passed off to pathology. Hemostasis was achieved with electrocautery. The skin was approximated with 2-0 and 3-0 nylon in simple and vertical mattress interrupted fashions. Triple antibiotic and sterile bandages were applied. Patient tolerated procedure well.
[2023-10-26] MEDS: neomycin-poly-bacitracin oint 28 gm 1 APPLIC TOPICAL (11:18)
[2023-10-26] MEDS: lidocaine-epi 1% 20 mL INJ 10 ML INJECTION (11:19)
--- NOTE | 2023-10-26 12:20 | ANE.PACU2 ---
Inpatient post-anesthesia follow up: Airway intact: Yes Vital signs: Temperature 97.6 F Pulse Rate 46 Respiratory Rate 18 Blood Pressure 99/55 Pulse Oximetry 100 Oxygen Delivery Me thod Room Air Oxygen Flow Rate 8 Fraction of Inspir ed Oxygen Hydration adequate: Yes Nausea and vomiting: No Pain level: 1 Mental status: Baseline
== END 2023-10-26 12:20 | disposition home or self-care (01) ==
PROVIDERS: PCP Family Medicine; Visit Provider Surgery
PROC: (CPT 11406; principal; 2023-10-26 11:35)
DX: D17.1 Benign lipomatous neoplasm of skin and subcutaneous tissue of trunk (principal); Z85.828 Personal history of other malignant neoplasm of skin
CPT/HCPCS: 11406; 36416; 82962; 88307; J0131; J0690; J1100; J2250; J2405; J2704; J3010; J3490; J7030

== ENCOUNTER → 2023-11-04 11:00 | Outpatient (BNVA) | payer MEDICARE, SELFPAY | PROVIDERS: PCP Family Medicine; Visit Provider Otolaryngology | DX: C06.9 Malignant neoplasm of mouth, unspecified (principal); K13.79 Other lesions of oral mucosa; K13.21 Leukoplakia of oral mucosa, including tongue | CPT/HCPCS: 99214 ==

== ENCOUNTER → 2023-11-09 14:13 | Outpatient (BNVA) | payer MEDICARE, MEDICAID, SELFPAY | PROVIDERS: PCP Family Medicine; Visit Provider Internal Medicine Rheumatology | DX: Z79.899 Other long term (current) drug therapy (principal); M19.90 Unspecified osteoarthritis, unspecified site; M45.9 Ankylosing spondylitis of unspecified sites in spine; Z15.89 Genetic susceptibility to other disease; Z71.85 Encounter for immunization safety counseling; Z85.53 Personal history of malignant neoplasm of renal pelvis; Z85.828 Personal history of other malignant neoplasm of skin; Z85.818 Personal history of malignant neoplasm of other sites of lip, oral cavity, and pharynx; Z87.891 Personal history of nicotine dependence | CPT/HCPCS: 99215 ==

== ENCOUNTER → 2023-11-15 14:55 | Outpatient (BNVA) | payer MEDICARE, MEDICAID, SELFPAY | PROVIDERS: PCP Family Medicine; Visit Provider Surgery | DX: Z98.890 Other specified postprocedural states (principal) | CPT/HCPCS: 99214 ==

== ENCOUNTER 2023-12-30 13:07 | Outpatient (CLI) | payer MEDICARE, MEDICAID, SELFPAY ==
--- NOTE | 2023-12-30 13:30 | CTR_ITS ---
PROCEDURE INFORMATION: Exam: CT Chest Without Contrast; Diagnostic Exam date and time: 12/30/2023 1:24 PM Age: 53 years old Clinical indication: Condition or disease; Cancer and other: Renal; Kidney, left; Other: Renal cancer; Primary cancer: Renal, head and neck; Prior surgery; Surgery date: 6+ months; Surgery type: Left kidney; Additional info: Renal cancer, head/neck cancer TECHNIQUE: Imaging protocol: Diagnostic computed tomography of the chest without contrast. Radiation optimization: All CT scans at this facility use at least one of these dose optimization techniques: automated exposure control; mA and/or kV adjustment per patient size (includes targeted exams where dose is matched to clinical indication); or iterative reconstruction. COMPARISON: CT chest abdpel w/*[id number] 07/08/2023 3:09 PM RADIATION DOSE METRICS: Total DLP (mGy-cm): 1135.53 FINDINGS: Lungs: No suspicious pulmonary nodules identified. Pleural spaces: No pleural effusion. No pneumothorax. Heart: The heart is within normal limits for size. There is no evidence of pericardial abnormality. Coronary arteries: Coronary artery calcifications noted. Lymph nodes: Unremarkable. No enlarged lymph nodes. Vasculature: Unremarkable. Bones/joints: Multilevel degenerative changes in the spine. Soft tissues: Unremarkable. PROCEDURE INFORMATION: Exam: CT Abdomen And Pelvis Without Contrast Exam date and time: 12/30/2023 1:24 PM Age: 53 years old Clinical indication: Condition or disease; Cancer and other: Renal; Kidney, left; Other: Renal cancer; Primary cancer: Renal, head and neck; Prior surgery; Surgery date: 6+ months; Surgery type: Left kidney; Additional info: Renal cancer, head/neck cancer TECHNIQUE: Imaging protocol: Computed tomography of the abdomen and pelvis without contrast. Radiation optimization: All CT scans at this facility use at least one of these dose optimization techniques: automated exposure control; mA and/or kV adjustment per patient size (includes targeted exams where dose is matched to clinical indication); or iterative reconstruction. COMPARISON: CT chest abdpel w/*[id number] 07/08/2023 3:09 PM RADIATION DOSE METRICS: Total DLP (mGy-cm): 1135.53 FINDINGS: Liver: There is a diffuse decrease in hepatic parenchymal density, consistent with fatty infiltration. Gallbladder and biliary ducts: Unremarkable. Pancreas: The pancreas appears normal. Spleen: The spleen appears normal. Adrenal glands: The adrenals appear normal. Kidneys and ureters: The left kidney is surgically absent. The right kidney appears unremarkable. Stomach and bowel: The stomach appears unremarkable. The small bowel loops are not abnormally dilated. The large bowel loops are not abnormally dilated. Colonic diverticulosis without signs of acute diverticulitis. Appendix: No signs of appendicitis. Intraperitoneal space: No ascites or significant fluid collection. Vasculature: The aorta is nonaneurysmal. The IVC appears normal. Lymph nodes: There are no enlarged lymph nodes. Urinary bladder: The bladder is distended and demonstrates no focal contour abnormality. Reproductive: Unremarkable as visualized. Bones/joints: Unremarkable. Soft tissues: Fat containing bilateral inguinal hernias. CT/[place] [id number] IMPRESSION: No signs of metastatic disease within the chest. IMPRESSION: 1. No signs of metastatic disease within the abdomen or pelvis. 2. Hepatic steatosis. COMMENTS: Evaluation of solid organs and vascular structures is limited as no IV contrast was administered.
== END 2023-12-30 13:08 | disposition home or self-care (01) ==
LOC: RAD 13:07
PROVIDERS: PCP Family Medicine; Visit Provider Internal Medicine Medical Oncology
DX: C06.9 Malignant neoplasm of mouth, unspecified (principal); C64.9 Malignant neoplasm of unspecified kidney, except renal pelvis; R53.83 Other fatigue; K76.0 Fatty (change of) liver, not elsewhere classified
CPT/HCPCS: 71250; 74176

== ENCOUNTER → 2024-01-19 10:31 | Outpatient (BNVA) | payer MEDICARE, MEDICAID, SELFPAY | PROVIDERS: PCP Family Medicine; Visit Provider Family Medicine | DX: I10 Essential (primary) hypertension (principal); E11.9 Type 2 diabetes mellitus without complications; E78.2 Mixed hyperlipidemia | CPT/HCPCS: 80053; 80061; 83036; 84443; 85025 ==

== ENCOUNTER 2024-01-21 12:46 | Oncology outpatient (recurring) (ONCR) | payer MEDICARE, MEDICAID, SELFPAY ==
[2024-01-13 12:18] LABS: Basophils % 0.7 %; Eosinophils # 0.2 10^3/uL (0.0-0.8); Eosinophils % 3.8 %; Hematocrit 49.9 % (37-53); Lymphocytes % 23.5 %; Mean Corpuscular HGB Conc 33.9 g/dL (30-55); Mean Corpuscular Hemoglobin 30.8 pg (27-33); Mean Corpuscular Volume 91.1 fl (82-101); Mean Platelet Volume 10.3 fL (7.4-10.4); Monocytes # 0.4 10^3/uL (0.2-0.9); Neutrophils % 61.8 %; Nucleated Red Blood Cells % 0 %; Platelet Count 141 10^3/cmm (157-399); Red Blood Count 5.48 10^6/uL (3.85-5.65); Red Cell Distribution Width 13.5 % (12.1-15.1); White Blood Count 4.21 10^3/uL (3.29-11.43)
[2024-01-13 12:46] LABS: Alanine Aminotransferase 24 U/L (0-41); Albumin Level 4.2 g/dL (3.5-5.2); Alkaline Phosphatase 33 U/L (40-130); Anion Gap 17.8 (5-19); Aspartate Amino Transferase 20 U/L (0-40); Blood Urea Nitrogen 20 mg/dL (6-20); Calcium 9.6 mg/dL (8.5-10.5); Carbon Dioxide 27 mmol/L (22-29); Chloride 102 mmol/L (98-107); Globulin 2.8 g/dL (1.3-4.6); Glomerular Filtration Rate 42.1 mL/min (90-130); Glucose 166 mg/dL (65-115); Osmolality Calculated 300 mOsm/kg (285-295); Potassium 4.8 mmol/L (3.5-5.1); Sodium 142 mmol/L (136-145); Thyroid Stimulating Hormone 0.91 uIU/mL (0.27-4.20); Total Bilirubin 0.3 mg/dL (0.15-1.2)
--- NOTE | 2024-01-21 13:00 | CT_ITS ---
WS: [id number] CT NECK WITH CONTRAST HISTORY: Surveillance RIGHT mouth and cheek cancer 2020. TECHNIQUE: Contiguous 2 mm axial images are performed through the neck without intravenous contrast. Sagittal and coronal reformats are also submitted. All CT scans at [facility] use at least on e of these dose optimization techniques: automated exposure control; mA and/or kV adjustment per lizet ent size (includes targeted exams where dose is matched to clinical indication); or iterative reconst ruction. CONTRAST: CONTRAST: None DLP: 316.17 mGy.cm COMPARISON: 07/08/2023, 10/15/2022 Decreased sensitivity as this exam was performed without IV contrast. Nasopharynx, oropharynx, hypopharynx and larynx are unremarkable. No soft tissue masses or abnormal e nhancement. No abnormality noted at the tongue base. Parapharyngeal fat is well maintained. Torus tubarius and fossa of Rosenmuller and parapharyngeal fat are normal. No significant lymphadenopathy is identified. Thyroid gland and salivary glands are normally enhancing with no masses. No osseous abnormalities. Visualized portions of the skull base demonstrate no abnormalities. Orbits and globes are within norm al limits. No soft tissue masses. Visualized paranasal sinuses and mastoid air cells are normal. Lung apices are clear. CT/CT neck con [id number] IMPRESSION: Negative noncontrast neck CT. No mass or cervical chain adenopathy identified.
== END 2024-01-29 23:55 | disposition home or self-care (01) ==
PROVIDERS: Internal Medicine Medical Oncology; PCP Family Medicine; Visit Provider Nurse Practitioner Family
DX: C06.9 Malignant neoplasm of mouth, unspecified
CPT/HCPCS: 36415; 70490; 80053; 84443; 85025; 99214

== ENCOUNTER → 2024-02-21 09:41 | Outpatient (BNVA) | payer MEDICARE, MEDICAID, SELFPAY | PROVIDERS: PCP Nurse Practitioner Family; Visit Provider Nurse Practitioner Family | DX: N18.30 Chronic kidney disease, stage 3 unspecified (principal); C64.9 Malignant neoplasm of unspecified kidney, except renal pelvis; N18.9 Chronic kidney disease, unspecified; E55.9 Vitamin D deficiency, unspecified | CPT/HCPCS: 80053; 81003; 82043; 82306; 82310; 83550; 83735; 83970; 84100; 84156; 84300; 84550; 85025 ==

== ENCOUNTER 2024-03-17 08:14 | Outpatient (CLI) | payer MEDICARE, MEDICAID, SELFPAY ==
--- NOTE | 2024-03-17 13:10 | PETR_ITS ---
PROCEDURE INFORMATION: Exam: PET/CT Skull Base to Mid-thigh Exam date and time: 03/17/2024 9:27 AM Age: 53 years old Clinical indication: Condition or disease; Primary cancer: Malignant neoplasm of mouth; Follow-up oncological assessment; Prior surgery; Surgery date: 6+ months; Surgery type: Oral cancer. History of renal cancer, status post left nephrectomy. LABS AND CLINICAL REPORTS: Glucose: 76 mg/dl Treatment strategy for malignancy (PET staging): Restaging (PS) TECHNIQUE: Imaging protocol: Following at least four-hour fasting and following the injection of radiopharmaceutical, low dose CT images were obtained. Then, PET images were obtained. Attenuation corrected images were constructed using the CT scan. Fused images of PET and CT were reviewed. The standardized uptake values (SUV) reported below are maximum values within a region of interest, expressed in gm/ml. Exam includes orbital meatal line to mid-thigh. Radiopharmaceutical: 11.27 mCi F-18 FDG (Fluorodeoxyglucose), IV. Time of imaging post radiopharmaceutical administration: 1 hour Injection site: RAC COMPARISON: PT PET Scan 11/14/2021, CT neck 07/08/2023 FINDINGS: Brain: Visualized brain has normal physiologic uptake. Pharynx: No abnormal uptake. Larynx: No abnormal uptake. Lungs, pleura and trachea: No abnormal uptake. No lung nodules or masses. No pleural effusion. Heart: Normal physiologic uptake. There is no cardiomegaly. Coronary artery calcification is present. There is no pericardial effusion. Mediastinal space: No abnormal uptake. There is a small hiatal hernia. Liver: No abnormal uptake. Fatty liver. Gallbladder and biliary ducts: No abnormal uptake. No calcified gallstones. Pancreas: No abnormal uptake. Spleen: No abnormal uptake. No splenomegaly. Adrenal glands: No abnormal uptake. No nodules. Kidneys and ureters: Normal physiologic uptake in the solitary right kidney with no hydronephrosis. The left kidney is absent post surgically.. Stomach and bowel: Increased uptake in multiple loops of ileum and in the entire length of the colon with no corresponding CT abnormality is benign. Stable diverticulosis of the sigmoid and descending colon. Intraperitoneal and retroperitoneal spaces: No abnormal uptake. No ascites. Bladder: Normal physiologic uptake. Reproductive: About 1 cm focus of increased uptake of 4.8 SUV in the right lateral peripheral zone of the prostate in the apex/mid gland (series 301, image 311) is new since prior exam. Vasculature: No abnormal uptake. Lymph nodes: No abnormal uptake. No lymphadenopathy in the head, neck, chest, abdomen, pelvis, and extremities. Skeleton: No abnormal uptake in the visualized axial and appendicular skeleton. Stable benign degenerative sclerosis in the posterior aspect of the right iliac bone along the sacroiliac joint. Soft tissues: No abnormal uptake in the visualized head, neck, chest, abdomen, pelvis, and extremities. Stable small fat containing left inguinal hernia. PET/PET skull to thigh INIT [id number] IMPRESSION: 1. No abnormal radiotracer uptake concerning for recurrent malignancy of the head and neck. 2. Incidental small FDG avid focus in the right aspect of the prostate for clinical/laboratory correlation with primary neoplasm.
== END 2024-03-17 08:15 | disposition home or self-care (01) ==
PROVIDERS: PCP Nurse Practitioner Family; Visit Provider Specialist
DX: C06.0 Malignant neoplasm of cheek mucosa (principal); K76.0 Fatty (change of) liver, not elsewhere classified; Z90.5 Acquired absence of kidney; K57.90 Diverticulosis of intestine, part unspecified, without perforation or abscess without bleeding; R93.89 Abnormal findings on diagnostic imaging of other specified body structures
CPT/HCPCS: 78815; A9552

== ENCOUNTER → 2024-03-21 14:07 | Outpatient (BNVA) | payer MEDICARE, MEDICAID, SELFPAY | PROVIDERS: PCP Nurse Practitioner Family; Visit Provider Internal Medicine Rheumatology | DX: M45.9 Ankylosing spondylitis of unspecified sites in spine (principal); Z79.899 Other long term (current) drug therapy; Z15.89 Genetic susceptibility to other disease; Z71.85 Encounter for immunization safety counseling; Z85.818 Personal history of malignant neoplasm of other sites of lip, oral cavity, and pharynx; Z85.53 Personal history of malignant neoplasm of renal pelvis; Z85.828 Personal history of other malignant neoplasm of skin; E11.22 Type 2 diabetes mellitus with diabetic chronic kidney disease; N18.9 Chronic kidney disease, unspecified; Z11.1 Encounter for screening for respiratory tuberculosis; Z11.59 Encounter for screening for other viral diseases; F17.210 Nicotine dependence, cigarettes, uncomplicated | CPT/HCPCS: 99215 ==

== ENCOUNTER 2024-05-10 14:16 | Outpatient (CLI) | payer MEDICARE, MEDICAID, SELFPAY ==
[2024-05-10 14:57] LABS: Basophils % 0.7 %; Eosinophils # 0.1 10^3/uL (0.0-0.8); Eosinophils % 2.5 %; Hematocrit 51.9 % (37-53); Lymphocytes # 1.1 10^3/uL (0.8-4.8); Mean Corpuscular HGB Conc 33.5 g/dL (30-55); Mean Corpuscular Hemoglobin 30.4 pg (27-33); Mean Corpuscular Volume 90.6 fl (82-101); Mean Platelet Volume 10.5 fL (7.4-10.4); Monocytes # 0.5 10^3/uL (0.2-0.9); Monocytes % 8.4 %; Neutrophils # 3.88 10^3/uL (1.8-7.7); Neutrophils % 68.2 %; Nucleated Red Blood Cells % 0 %; Platelet Count 161 10^3/cmm (157-399); Red Blood Count 5.73 10^6/uL (3.85-5.65); Red Cell Distribution Width 13.7 % (12.1-15.1); White Blood Count 5.69 10^3/uL (3.29-11.43)
[2024-05-10 15:05] LABS: Bilirubin Urine Negative (Negative); Blood Urine Negative (Negative); Glucose Urine UA 3+ (Normal); Ketones Urine Negative (Negative); Leukocyte Esterase Urine Negative (Negative); Nitrate Urine Negative (Negative); Protein Urine Negative (Negative); Specific Gravity, Urine 1.021 (1.005-1.030); Urine Appearance Cloudy (CLEAR); Urine Color Yellow (Yellow); Urobilinogen Urine 0.2 mg/dL (Negative); pH Urine 6.5 (5-7)
[2024-05-10 15:07] LABS: Bacteria Urine None Seen /hpf; Hyaline Casts Urine 0-4 /lpf; RBC Urine 0-2 /hpf (0-2); Squamous Epithelial Cell Urine 0-5 /hpf (0-5); WBC Urine 0-5 /hpf (0-5)
[2024-05-10 15:21] LABS: Alanine Aminotransferase 20 U/L (0-41); Albumin Level 4.3 g/dL (3.5-5.2); Alkaline Phosphatase 27 U/L (40-130); Aspartate Amino Transferase 17 U/L (0-40); Blood Urea Nitrogen 25 mg/dL (6-20); Calcium 10.1 mg/dL (8.5-10.5); Carbon Dioxide 23 mmol/L (22-29); Chloride 101 mmol/L (98-107); Globulin 3.1 g/dL (1.3-4.6); Glomerular Filtration Rate 39.4 mL/min (90-130); Glucose 86 mg/dL (65-115); Iron 94 ug/dL (59-158); Magnesium 1.9 mg/dL (1.7-2.3); Osmolality Calculated 286 mOsm/kg (285-295); Percent Saturation 22.4 % (20-50); Phosphorus 3.4 mg/dL (2.5-4.5); Sodium 136 mmol/L (136-145); Total Bilirubin 0.2 mg/dL (0.15-1.2); Total Iron Binding Capacity 419 mcg/dl; Total Protein 7.4 g/dL (6.6-8.7); Unsaturated Iron Binding 325 ug/dL (112-347)
[2024-05-10 15:23] LABS: Creatinine Urine, Random 77 mg/dL (39-259); Microalbum Creatinine Ratio Ur 13 mg/dL (0-20); Microalbumin Random Urine 1 ug/dL (0-20); UPRO/UCREAT Ratio 0.09 mg/mg CR; Urine Creatinine 76 mg/dL (39-259); Urine Protein Random 7 mg/dL
[2024-05-10 15:29] LABS: Calcium 10.2 mg/dL (8.5-10.5)
[2024-05-10 15:36] LABS: 25 Hydroxy Vitamin D 16 ng/mL (30-100); Parathyroid Hormone 49.9 pg/mL (15-65)
== END 2024-05-10 14:17 | disposition home or self-care (01) ==
PROVIDERS: PCP Family Medicine
DX: N18.32 Chronic kidney disease, stage 3b (principal)
CPT/HCPCS: 36415; 80053; 81001; 82044; 82306; 82310; 82570; 83540; 83550; 83735; 83970; 84100; 84153; 84156; 84403; 85025

== ENCOUNTER → 2024-06-21 09:50 | Outpatient (BNVA) | payer MEDICARE, MEDICAID, SELFPAY | PROVIDERS: PCP Family Medicine; Visit Provider Family Medicine | DX: E29.1 Testicular hypofunction (principal); N52.9 Male erectile dysfunction, unspecified | CPT/HCPCS: 84403 ==

== ENCOUNTER 2024-07-13 13:10 | Oncology outpatient (recurring) (ONCR) | payer MEDICARE, MEDICAID, SELFPAY ==
[2024-07-13 13:41] LABS: Basophils % 0.7 %; Eosinophils # 0.2 10^3/uL (0.0-0.8); Hematocrit 52.3 % (37-53); Lymphocytes % 17.7 %; Mean Corpuscular HGB Conc 32.5 g/dL (30-55); Mean Corpuscular Hemoglobin 29.7 pg (27-33); Mean Corpuscular Volume 91.4 fl (82-101); Mean Platelet Volume 9.9 fL (7.4-10.4); Monocytes # 0.5 10^3/uL (0.2-0.9); Monocytes % 8.4 %; Neutrophils # 3.89 10^3/uL (1.8-7.7); Neutrophils % 69.8 %; Nucleated Red Blood Cells % 0 %; Platelet Count 155 10^3/cmm (157-399); Red Blood Count 5.72 10^6/uL (3.85-5.65); Red Cell Distribution Width 13.3 % (12.1-15.1); White Blood Count 5.58 10^3/uL (3.29-11.43)
[2024-07-13 14:09] LABS: Alanine Aminotransferase 19 U/L (0-41); Albumin Level 4.2 g/dL (3.5-5.2); Alkaline Phosphatase 33 U/L (40-130); Anion Gap 17.4 (5-19); Aspartate Amino Transferase 17 U/L (0-40); Blood Urea Nitrogen 31 mg/dL (6-20); Calcium 10.4 mg/dL (8.5-10.5); Carbon Dioxide 26 mmol/L (22-29); Chloride 99 mmol/L (98-107); Globulin 3.1 g/dL (1.3-4.6); Glomerular Filtration Rate 34.7 mL/min (90-130); Glucose 136 mg/dL (65-115); Osmolality Calculated 295 mOsm/kg (285-295); Potassium 4.4 mmol/L (3.5-5.1); Sodium 138 mmol/L (136-145); Thyroid Stimulating Hormone 1.52 uIU/mL (0.27-4.20); Total Bilirubin 0.2 mg/dL (0.15-1.2); Total Protein 7.3 g/dL (6.6-8.7)
== END 2024-07-28 23:59 | disposition home or self-care (01) ==
PROVIDERS: Nurse Practitioner Family; PCP Family Medicine; Visit Provider Internal Medicine
DX: Z08 Encounter for follow-up examination after completed treatment for malignant neoplasm (principal); Z85.89 Personal history of malignant neoplasm of other organs and systems; Z85.520 Personal history of malignant carcinoid tumor of kidney; Z72.0 Tobacco use; I10 Essential (primary) hypertension; Z90.5 Acquired absence of kidney; Z92.3 Personal history of irradiation; Z92.21 Personal history of antineoplastic chemotherapy; R74.8 Abnormal levels of other serum enzymes
CPT/HCPCS: 36415; 80053; 84443; 85025; 99214

== ENCOUNTER → 2024-08-24 09:34 | Outpatient (BNVA) | payer MEDICARE, MEDICAID, SELFPAY | PROVIDERS: PCP Family Medicine; Visit Provider Family Medicine | DX: E11.9 Type 2 diabetes mellitus without complications (principal); N18.32 Chronic kidney disease, stage 3b; E29.1 Testicular hypofunction | CPT/HCPCS: 80048; 83036; 84403 ==

== ENCOUNTER → 2024-08-25 10:23 | Outpatient (BNVA) | payer MEDICARE, MEDICAID, SELFPAY | PROVIDERS: PCP Family Medicine; Visit Provider Family Medicine | DX: E87.5 Hyperkalemia (principal) | CPT/HCPCS: 80048 ==

== ENCOUNTER 2024-09-05 09:41 | Outpatient (CLI) | payer MEDICARE, MEDICAID, SELFPAY ==
[2024-09-05 10:53] LABS: Basophils % 0.7 %; Eosinophils # 0.1 10^3/uL (0.0-0.8); Eosinophils % 2.9 %; Hematocrit 53.1 % (37-53); Lymphocytes # 0.7 10^3/uL (0.8-4.8); Lymphocytes % 17.4 %; Mean Corpuscular Hemoglobin 29.6 pg (27-33); Mean Corpuscular Volume 92.5 fl (82-101); Mean Platelet Volume 10.3 fL (7.4-10.4); Monocytes # 0.4 10^3/uL (0.2-0.9); Monocytes % 9.1 %; Neutrophils # 2.84 10^3/uL (1.8-7.7); Neutrophils % 69.7 %; Nucleated Red Blood Cells % 0 %; Platelet Count 150 10^3/cmm (157-399); Red Blood Count 5.74 10^6/uL (3.85-5.65); Red Cell Distribution Width 14.3 % (12.1-15.1); White Blood Count 4.08 10^3/uL (3.29-11.43)
[2024-09-05 10:57] LABS: Bacteria Urine None Seen /hpf; Hyaline Casts Urine 0-4 /lpf; RBC Urine 0-2 /hpf (0-2); Squamous Epithelial Cell Urine 0-5 /hpf (0-5); WBC Urine 0-5 /hpf (0-5)
[2024-09-05 11:01] LABS: Add Urine Culture? No; Bilirubin Urine Neg (Negative); Blood Urine Neg (Negative); Glucose Urine UA 4+ (Normal); Ketones Urine Negative (Negative); Leukocyte Esterase Urine Negative (Negative); Nitrate Urine Negative (Negative); Protein Urine Neg (Negative); Urine Appearance Clear (CLEAR); Urine Color Yellow (Yellow); Urobilinogen Urine Norm (Negative); pH Urine 5 (5-7)
[2024-09-05 11:10] LABS: Calcium 9.2 mg/dL (8.5-10.5)
[2024-09-05 11:11] LABS: Urine Random Sodium 84 mmol/L
[2024-09-05 11:14] LABS: Alanine Aminotransferase 17 U/L (0-41); Albumin Level 4.1 g/dL (3.5-5.2); Alkaline Phosphatase 28 U/L (40-130); Anion Gap 15.3 (5-19); Aspartate Amino Transferase 17 U/L (0-40); Blood Urea Nitrogen 26 mg/dL (6-20); Calcium 9.2 mg/dL (8.5-10.5); Carbon Dioxide 26 mmol/L (22-29); Chloride 103 mmol/L (98-107); Globulin 2.7 g/dL (1.3-4.6); Glomerular Filtration Rate 39.2 mL/min (90-130); Glucose 150 mg/dL (65-115); Iron 60 ug/dL (59-158); Magnesium 1.9 mg/dL (1.7-2.3); Osmolality Calculated 298 mOsm/kg (285-295); Percent Saturation 14.5 % (20-50); Phosphorus 2.7 mg/dL (2.5-4.5); Potassium 4.3 mmol/L (3.5-5.1); Sodium 140 mmol/L (136-145); Total Bilirubin 0.2 mg/dL (0.15-1.2); Total Iron Binding Capacity 413 mcg/dl; Total Protein 6.8 g/dL (6.6-8.7); Unsaturated Iron Binding 353 ug/dL (112-347); Uric Acid 6.2 mg/dL (3.4-7.0)
[2024-09-05 11:16] LABS: Creatinine Urine, Random 61 mg/dL (39-259); Microalbum Creatinine Ratio Ur 16 mg/dL (0-20); Microalbumin Random Urine 1 ug/dL (0-20)
[2024-09-05 11:17] LABS: Parathyroid Hormone 65.8 pg/mL (15-65)
[2024-09-05 11:30] LABS: 25 Hydroxy Vitamin D 31 ng/mL (30-100)
== END 2024-09-05 09:42 | disposition home or self-care (01) ==
LOC: RAD 09:50 → LAB 09:59
PROVIDERS: PCP Family Medicine; Visit Provider Student in an Organized Health Care Education/Training Program
DX: N18.32 Chronic kidney disease, stage 3b (principal)
CPT/HCPCS: 36415; 80053; 81001; 82044; 82306; 82310; 83540; 83550; 83735; 83970; 84100; 84300; 84550; 85025

== ENCOUNTER → 2024-09-27 10:29 | Outpatient (BNVA) | payer MEDICARE, MEDICAID, SELFPAY | PROVIDERS: PCP Nurse Practitioner Family; Visit Provider Internal Medicine Rheumatology | DX: Z79.899 Other long term (current) drug therapy (principal); M45.9 Ankylosing spondylitis of unspecified sites in spine; Z15.89 Genetic susceptibility to other disease; Z71.85 Encounter for immunization safety counseling | CPT/HCPCS: 99214 ==

== ENCOUNTER → 2024-10-10 09:36 | Outpatient (BNVA) | payer MEDICARE, MEDICAID, SELFPAY | PROVIDERS: PCP Nurse Practitioner Family; Referring Provider Family Medicine; Visit Provider Nurse Practitioner Family | DX: M54.9 Dorsalgia, unspecified (principal); G89.29 Other chronic pain | CPT/HCPCS: 99214 ==

== ENCOUNTER → 2024-10-18 10:25 | Outpatient (BNVA) | payer MEDICARE, MEDICAID, SELFPAY | PROVIDERS: PCP Nurse Practitioner Family; Visit Provider Nurse Practitioner Family | DX: M79.18 Myalgia, other site (principal); M54.9 Dorsalgia, unspecified; G89.29 Other chronic pain | CPT/HCPCS: 20553; 99214; J1010; J3490 ==

== ENCOUNTER → 2024-11-01 10:09 | Outpatient (BNVA) | payer MEDICARE, MEDICAID, SELFPAY | PROVIDERS: PCP Nurse Practitioner Family; Visit Provider Nurse Practitioner Family | DX: M54.9 Dorsalgia, unspecified (principal); G89.29 Other chronic pain | CPT/HCPCS: 99214 ==

== ENCOUNTER → 2024-11-29 09:53 | Outpatient (BNVA) | payer MEDICARE, MEDICAID, SELFPAY | PROVIDERS: PCP Family Medicine; Visit Provider Nurse Practitioner Family | DX: M79.641 Pain in right hand (principal); M79.642 Pain in left hand; M54.9 Dorsalgia, unspecified; G89.29 Other chronic pain | CPT/HCPCS: 99214 ==

== ENCOUNTER 2024-12-05 11:55 | Oncology outpatient (recurring) (ONCR) | payer MEDICARE, MEDICAID, SELFPAY ==
--- NOTE | 2024-12-05 12:15 | MR_ITS ---
WS: [id number] MRI LUMBAR SPINE NONCONTRAST TECHNIQUE: Sagittal T1, T2 and STIR imaging. Axial T1 and T2 imaging. CLINICAL INFORMATION: M54.16 - Radiculopathy, lumbar region COMPARISON: None. FINDINGS: Mild lumbar curve. No acute compression. Mild annular bulging L3-L4 and L4-L5. L1-L2: Mild annular bulging. Slight narrowing of the RIGHT subarticular recess. Mild facet arthropathy. Foramen are patent L2-L3: Mild annular bulging. Slight narrowing of the RIGHT subarticular recess. Mild facet arthropathy. Mild RIGHT foraminal narrowing. L3-L4: Mild annular bulging. Narrowing of the subarticular recess. Impingement of traversing L4 nerve roots. LEFT foraminal protrusion slightly impinges the exiting LEFT L3 nerve root. Mild RIGHT foraminal narrowing. Moderate facet arthropathy. L4-L5: Mild annular bulging. Mild central canal stenosis. Marked impingement on the RIGHT L5 nerve root in the subarticular recess. RIGHT foraminal protrusion impinges the exiting L4 nerve root with severe RIGHT foraminal narrowing. Mild LEFT foraminal narrowing. Moderate facet arthropathy. L5-S1: Mild annular bulging with a RIGHT subarticular protrusion. Impingement of the traversing RIGHT S1 nerve root. Annular bulge also slightly contacts LEFT S1 nerve root. Mild bilateral foraminal narrowing. Moderate facet arthropathy. Visualized pelvic bony structures: Normal. Paravertebral soft tissues: Normal. LEFT nephrectomy. MR/MR lumbar spine wo con* [id number] IMPRESSION: 1. Mild lumbar curve. No acute compression. 2. Mild central canal stenosis L4-5 with impingement on the RIGHT subarticular recess and traversing RIGHT L5 nerve root. 3. RIGHT foraminal protrusion L4-5 impinges the exiting L4 nerve root with sev ere RIGHT foraminal narrowing. 4. Small RIGHT subarticular protrusion L5-S1 impinges the traversing RIGHT S1 nerve root in the subarticular recess. 5. Annular bulging L3-4 impinges the traversing L4 nerve roots LEFT greater th an RIGHT 6. Small LEFT foraminal protrusion L3-4 with mild LEFT foraminal narrowing and slight contact of the exiting LEFT L3 nerve root.
== END 2024-12-28 23:59 | disposition home or self-care (01) ==
LOC: RAD 11:56 → ONCMED 12-06 09:22
PROVIDERS: PCP Family Medicine; Visit Provider Internal Medicine
DX: Z08 Encounter for follow-up examination after completed treatment for malignant neoplasm (principal); Z85.89 Personal history of malignant neoplasm of other organs and systems; Z85.520 Personal history of malignant carcinoid tumor of kidney; Z72.0 Tobacco use; I10 Essential (primary) hypertension; Z90.5 Acquired absence of kidney; Z92.3 Personal history of irradiation; Z92.21 Personal history of antineoplastic chemotherapy; R74.8 Abnormal levels of other serum enzymes; M54.16 Radiculopathy, lumbar region
CPT/HCPCS: 72148

== ENCOUNTER → 2024-12-07 11:05 | Outpatient (BNVA) | payer MEDICARE, MEDICAID, SELFPAY | PROVIDERS: PCP Family Medicine; Visit Provider Nurse Practitioner Family | DX: M54.9 Dorsalgia, unspecified (principal); G89.29 Other chronic pain; M79.641 Pain in right hand; M79.642 Pain in left hand | CPT/HCPCS: 99214 ==

== ENCOUNTER → 2024-12-12 13:31 | Outpatient (BNVA) | payer MEDICARE, MEDICAID, SELFPAY | PROVIDERS: PCP Family Medicine; Visit Provider Physician Assistant | DX: M79.641 Pain in right hand (principal); M79.642 Pain in left hand; G56.23 Lesion of ulnar nerve, bilateral upper limbs; G56.03 Carpal tunnel syndrome, bilateral upper limbs; M65.331 Trigger finger, right middle finger | CPT/HCPCS: 20600; 73130; 99203; J3301; J3490 ==

== ENCOUNTER → 2024-12-20 14:17 | Outpatient (BNVA) | payer MEDICARE, MEDICAID, SELFPAY | PROVIDERS: PCP Family Medicine; Visit Provider Anesthesiology Pain Medicine | DX: M54.16 Radiculopathy, lumbar region (principal); M54.9 Dorsalgia, unspecified; G89.29 Other chronic pain; E11.9 Type 2 diabetes mellitus without complications; Z01.818 Encounter for other preprocedural examination | CPT/HCPCS: 64483; 64484; J1100; J3490; J9999 ==

== ENCOUNTER 2025-01-03 11:03 | Outpatient (CLI) | payer MEDICARE, MEDICAID, SELFPAY | END 2025-01-03 11:04 | disposition home or self-care (01) | LOC: RAD 01-06 09:13 | PROVIDERS: PCP Family Medicine; Visit Provider Nurse Practitioner Family | DX: M54.9 Dorsalgia, unspecified (principal); G89.29 Other chronic pain; M79.641 Pain in right hand; M79.642 Pain in left hand | CPT/HCPCS: 99214 ==

== ENCOUNTER → 2025-01-16 10:56 | Outpatient (BNVA) | payer MEDICARE, MEDICAID, SELFPAY | PROVIDERS: PCP Family Medicine; Referring Provider Physician Assistant; Visit Provider Specialist | DX: G56.03 Carpal tunnel syndrome, bilateral upper limbs (principal); M79.641 Pain in right hand; M79.642 Pain in left hand; G56.21 Lesion of ulnar nerve, right upper limb | CPT/HCPCS: 95911 ==

== ENCOUNTER 2025-01-18 12:57 | Oncology outpatient (recurring) (ONCR) | payer MEDICARE, MEDICAID, SELFPAY ==
[2025-01-18 14:00] LABS: Hematocrit 54.0 % (37-53); Hemoglobin 17.90 g/dL (11.27-16.99); Mean Corpuscular HGB Conc 33.1 g/dL (30-55); Mean Corpuscular Hemoglobin 29.9 pg (27-33); Mean Corpuscular Volume 90.3 fl (82-101); Nucleated Red Blood Cells % 0 %; Platelet Count 131 10^3/cmm (157-399); Red Blood Count 5.98 10^6/uL (3.85-5.65); White Blood Count 4.81 10^3/uL (3.29-11.43)
[2025-01-18 14:19] LABS: Alanine Aminotransferase 26 U/L (0-41); Albumin Level 4.3 g/dL (3.5-5.2); Alkaline Phosphatase 31 U/L (40-130); Anion Gap 15.5 (5-19); Aspartate Amino Transferase 28 U/L (0-40); Blood Urea Nitrogen 30 mg/dL (6-20); Calcium 9.5 mg/dL (8.5-10.5); Carbon Dioxide 23 mmol/L (22-29); Chloride 104 mmol/L (98-107); Creatinine Clr Calc Pharmacy 55.8605; Globulin 2.7 g/dL (1.3-4.6); Glucose 106 mg/dL (65-115); Osmolality Calculated 293 mOsm/kg (285-295); Potassium 4.5 mmol/L (3.5-5.1); Sodium 138 mmol/L (136-145); Total Protein 7.0 g/dL (6.6-8.7)
== END 2025-01-28 23:59 | disposition home or self-care (01) ==
LOC: ONCMED 12:57
PROVIDERS: PCP Family Medicine; Visit Provider Internal Medicine
DX: Z08 Encounter for follow-up examination after completed treatment for malignant neoplasm (principal); Z85.89 Personal history of malignant neoplasm of other organs and systems; F17.210 Nicotine dependence, cigarettes, uncomplicated; D75.1 Secondary polycythemia; Z90.5 Acquired absence of kidney; Z92.3 Personal history of irradiation; Z92.21 Personal history of antineoplastic chemotherapy
CPT/HCPCS: 36415; 80053; 85025; 99213

== ENCOUNTER → 2025-01-31 10:28 | Outpatient (BNVA) | payer MEDICARE, MEDICAID, SELFPAY | PROVIDERS: PCP Family Medicine; Visit Provider Anesthesiology Pain Medicine | DX: M47.816 Spondylosis without myelopathy or radiculopathy, lumbar region (principal) | CPT/HCPCS: 64493; 64494; 64495; J3490; J9999 ==

== ENCOUNTER → 2025-02-06 11:04 | Outpatient (BNVA) | payer MEDICARE, MEDICAID, SELFPAY | PROVIDERS: PCP Family Medicine; Visit Provider Student in an Organized Health Care Education/Training Program | DX: M65.331 Trigger finger, right middle finger (principal); M65.321 Trigger finger, right index finger | CPT/HCPCS: 99214 ==

== ENCOUNTER → 2025-02-13 08:31 | Outpatient (BNVA) | payer MEDICARE, MEDICAID, SELFPAY | PROVIDERS: PCP Family Medicine; Visit Provider Nurse Practitioner Family | DX: M54.9 Dorsalgia, unspecified (principal); G89.29 Other chronic pain; M79.641 Pain in right hand; M79.642 Pain in left hand; F17.210 Nicotine dependence, cigarettes, uncomplicated | CPT/HCPCS: 99214 ==

== ENCOUNTER → 2025-02-27 12:52 | Outpatient (BNVA) | payer MEDICARE, MEDICAID, SELFPAY | PROVIDERS: PCP Family Medicine; Visit Provider Anesthesiology Pain Medicine | DX: M47.816 Spondylosis without myelopathy or radiculopathy, lumbar region (principal) | CPT/HCPCS: 64493; 64494; 64495; J3490; J9999 ==

== ENCOUNTER → 2025-03-07 10:06 | Outpatient (BNVA) | payer MEDICARE, MEDICAID, SELFPAY | PROVIDERS: PCP Family Medicine; Visit Provider Nurse Practitioner Family | DX: M54.9 Dorsalgia, unspecified (principal); G89.29 Other chronic pain; M79.641 Pain in right hand; M79.642 Pain in left hand | CPT/HCPCS: 99214 ==

== ENCOUNTER → 2025-03-08 07:57 | Outpatient (BNVA) | payer MEDICARE, MEDICAID, SELFPAY | PROVIDERS: PCP Family Medicine; Visit Provider Family Medicine | DX: E11.9 Type 2 diabetes mellitus without complications (principal); N28.89 Other specified disorders of kidney and ureter; E29.1 Testicular hypofunction; E78.2 Mixed hyperlipidemia | CPT/HCPCS: 80053; 80061; 83036; 84403; 85025 ==

== ENCOUNTER → 2025-04-10 13:51 | Outpatient (BNVA) | payer MEDICARE, MEDICAID, SELFPAY | PROVIDERS: PCP Family Medicine; Visit Provider Anesthesiology Pain Medicine | DX: M47.816 Spondylosis without myelopathy or radiculopathy, lumbar region (principal); E11.9 Type 2 diabetes mellitus without complications | CPT/HCPCS: 36416; 64635; 64636; 82962; J1100; J9999 ==

== ENCOUNTER → 2025-04-24 10:07 | Outpatient (BNVA) | payer MEDICARE, MEDICAID, SELFPAY | PROVIDERS: PCP Family Medicine; Visit Provider Nurse Practitioner Family | DX: M54.2 Cervicalgia (principal) | CPT/HCPCS: 72040 ==

== ENCOUNTER → 2025-05-02 08:33 | Outpatient (BNVA) | payer MEDICARE, MEDICAID, SELFPAY | PROVIDERS: PCP Family Medicine; Visit Provider Nurse Practitioner Family | DX: M79.18 Myalgia, other site (principal); M54.2 Cervicalgia; M54.12 Radiculopathy, cervical region; M54.9 Dorsalgia, unspecified; G89.29 Other chronic pain; M79.641 Pain in right hand; M79.642 Pain in left hand | CPT/HCPCS: 20553; 99214; J1010; J3490 ==

== ENCOUNTER 2025-05-10 14:13 | Outpatient (CLI) | payer MEDICARE, MEDICAID, SELFPAY ==
--- NOTE | 2025-05-10 14:25 | CT_ITS ---
WS: [id number] CT facial bones wo con* [id number] REASON FOR EXAM: INFLAMMATORY CONDITIONS OF JAWS IV CONTRAST ADMINISTERED: None. TECHNIQUE: Multiple axial images without intravenous contrast enhancement from the inferior margin of the mandible to the superior extent of the frontal sinuses. Coronal and sagittal reconstructions. TOTAL EXAM DLP: 629.[address] scans at [facility] use at least one of these dose optimization techniques: automated exposure control; mA and/or kV adjustment per patient size (includes targeted exams where dose is matched to clinical indication); or iterative reconstruction. FINDINGS: Portions of the bony calvarium that are demonstrated are normal. Moderately lobe bony nasal septal deviation. Enlargement of the middle and superior turbinates. Mild to moderate thickening of the mucosa in the ethmoid sinuses. Maxillary and frontal and sphenoid sinuses are normal. The base of the skull and the temporal bones are normal. Temporomandibular joints and mandible. The dental maxillary bone demonstrates areas absent of cortex with fragmentation and areas of lucency around the teeth. These changes are most prominent in the posterior and mid maxilla with an area of absent cortex in the dependent portion of the right maxillary sinus. There is significant enlargement of the left submaxillary gland. CT/CT facial bones wo con* [id number] IMPRESSION: Abnormal dental maxillary bone as above. Presumed secondary to dental caries an d chronic infection. Significant enlargement of the left submaxillary gland. Mild ethmoid chronic inflammatory sinus disease.
== END 2025-05-10 14:14 | disposition home or self-care (01) ==
LOC: RAD 14:18
PROVIDERS: PCP Family Medicine; Visit Provider Specialist
DX: M27.2 Inflammatory conditions of jaws (principal); J34.2 Deviated nasal septum; J34.3 Hypertrophy of nasal turbinates; J32.2 Chronic ethmoidal sinusitis; R93.0 Abnormal findings on diagnostic imaging of skull and head, not elsewhere classified
CPT/HCPCS: 70486

== ENCOUNTER 2025-05-11 09:07 | Outpatient (CLI) | payer MEDICARE, MEDICAID, SELFPAY ==
--- NOTE | 2025-05-11 09:18 | MRR_ITS ---
PROCEDURE INFORMATION: Exam: MR Face Without Contrast Exam date and time: 05/11/2025 10:02 AM Age: 54 years old Clinical indication: Condition or disease; Other: Osteoradionecrosis; Prior surgery; Surgery date: 6+ months; RT sided lower gum is splitting open - bone showing x 6 months. Getting bigger. HX of RT sided jaw/cheek CA with chemo and radiation. RT sided cheek cancer treated in 2020. TECHNIQUE: Imaging protocol: Magnetic resonance imaging of the face without contrast. COMPARISON: CT facial bones wo con* [id number] 05/10/2025 2:33 PM FINDINGS: Paranasal sinuses: No fluid levels. Orbital cavities: Orbits are normal. Globes are unremarkable. Nasopharynx: Pharynx: Unremarkable. Larynx: Visualized larynx is unremarkable. Salivary glands: Visualized submandibular and parotid glands are unremarkable. Lymph nodes: No lymphadenopathy. Soft tissues: Unremarkable. Bones/joints: Unremarkable. Lungs: Subtle increased T2 signal within right mandibular alveolar region, spanning the expected location of posterior T as well as bilaterally in the maxillary alveolus. MR/[place] [id number] IMPRESSION: Subtle increased T2 signal within right mandibular alveolar region, spanning the expected location of posterior T as well as bilaterally in the maxillary alveolus. These findings are nonspecific and may be attributable to dental disease. Incipient osteoradionecrosis is not excluded, especially involving the right mandibular body where there is some CT evidence of tye erosion medially.
== END 2025-05-11 09:08 | disposition home or self-care (01) ==
LOC: RAD 09:09
PROVIDERS: PCP Family Medicine; Visit Provider Specialist
DX: M27.2 Inflammatory conditions of jaws (principal); Z98.890 Other specified postprocedural states; Z85.89 Personal history of malignant neoplasm of other organs and systems; J98.4 Other disorders of lung
CPT/HCPCS: 70336